=== PATIENT | female | born 1970 | race Caucasian/White ===

== ENCOUNTER → 2025-05-08 | Outpatient (CLI) | payer SELFPAY ==
--- OUTSIDE RECORDS SUMMARY | 2025-05-08 18:40 | XMS RPT_ITS | CCD ---
Author Organization [facility] Inform ion Partnership [facility] Care Team Providers Care Machine Welt Butter Name Role Phone VITO LINN MD Primary Care Physician Samples Bench Assembler Electrical, Amy Unavailable Unavailable Justin Heath Unavailable Unavailable Meghna Díaz Unavailable Unavailable Hanna Oliveira Attending Unavailable Hanna Oliveira Attending Unavailable Hanna Oliveira Attending Unavailable VITO LINN MD Primary Care Physician JOSE ROYAL MD Attending Unavailable MD VITO LINN MD Primary Care Unavailab JOSE Felix MD Attending Unavailable MD VITO LINN MD Primary Care Unavailab MD VITO Galo MD Attending Unavailab MD VITO Galo MD Primary Care Unavailab MD VITO Galo MD Attending Unavailab MD VITO Galo MD Primary Care Unavailab MD VITO Galo MD Attending Unavailab MD VITO Galo MD Primary Care Unavailab MD VITO Galo MD Attending Unavailab MD VITO Galo MD Primary Care Unavailab JOSE Felix MD Attending Unavailable MD VITO LINN MD Primary Care Unavailab MD VITO Galo MD Primary Care Unavailab HEENA Elmore DO Attending Unavail able GELACIO ALMARAZ MD Attending Unavailable MD VITO LINN MD Primary Care Unavailab MD LELE Perdue Attending Unavailable MD VITO LINN MD Primary Care Unavailab HEENA Elmore DO Attending Unavail able MD VITO LINN MD Primary Care Unavailab SHABBIR Blank Attending Unavailab MD VITO Galo MD Primary Care Unavailab MD LELE Perdue Attending Unavailable MD VITO LINN MD Primary Care Unavailab MD LELE Perdue Admitting Unavailable MD VITO LINN MD Attending Unavailab MD VITO Galo MD Primary Care Unavailab MD VITO Galo MD Attending Unavailab MD VITO Galo MD Primary Care Unavailab eloise LINN MD, MD VITO Primary [facility] Unavailab HEENA Elmore DO Attending Unavail able MD VITO LINN MD Primary Care Unavailab MD LELE Perdue Attending Unavailable MD VITO LINN MD Primary [facility] Unavailab MD VITO Galo MD Attending Unavailab HEENA Elmore DO Attending Unavail able MD VITO LINN MD Primary [facility] Unavailab eloise LINN MD, MD VITO Primary [facility] Unavailab eloise RIOS MD, DR NAIK Attending Unav ailable Allergies Allergy Classification Reported Allergen(s) Allergy Type Date of Onset Reaction(s) Facility (9 sources) Amoxicillin; Translations: [amoxicillin] Drug Allergy [facility] Work Phone: (9 sources) Sulfamethoxazole / Trimethoprim; Translations: [sulfamethoxazole-tri methoprim] Drug Allergy [facility] Work Phone: Medications Current Medications Medication Drug Class(es) Dates Sig (Normalized) Sig (Original) Acetaminophen / HYDROcodone (1 source) Opioid Agonist Start: 06-30-2012 take 1 tablet by mouth every four hours as needed for pain Vicodin 500-5 mg oral tablet Dose = 1 tab(s), Oral, q4h, PRN Pain, # 30 tab(s), 0 Refill(s) Start Date: 06/30/12 Status: Ordered docusate sodium 100 mg oral capsule (1 source) Start: 06-30-2012 Colace 100 mg oral capsule Dose : 100 mg = 1 cap(s), Oral, BID, PRN Constipation, 0 Refill(s) Start Date: 06/30/12 Status: Ordered estradiol 1 mg oral tablet (8 sources) Estrogen Start: 04-13-2022 take 0.5 tablet by mouth every other day estradiol 1 mg oral tablet See Instructions, 1/2 tab(s) mg Oral every other Day, 0 Refill(s) Start Date: 04/13/22 Status: Ordered famotidine 20 mg oral tablet (8 sources) Histamine-2 Receptor Antagonist Start: 04-13-2022 famotidine 20 mg oral tablet 0 Refill(s) Start Date: 04/13/22 Status: Ordered ibuprofen 600 mg oral tablet (1 source) Nonsteroidal Anti-inflammatory Drug Start: 06-30-2012 Motrin 600 mg oral tablet Dose : 600 mg = 1 tab(s), Oral, q6h, PRN Pain, scale 1-4 ( Mild ), # 60 tab(s), 0 Refill(s) Start Date: 06/30/12 Status: Ordered Vitamin D3 25 mcg (1000 intl units) oral tablet (8 sources) Start: 04-13-2022 Vitamin D3 25 mcg (1000 intl units) oral tablet Dose : 25 mcg = 1 tab(s), Oral, qDay, # 30 tab(s), 0 Refill(s) Start Date: 04/13/22 Status: Ordered Problems Active Problems Problem Classification Problem Date Documented Date Episodic/Chronic Other nervous system disorders (1 source) Other acute postprocedural pain; Translations: [Other acute postprocedural pain] Onset: 11-22-2024 Episodic Other screening for suspected conditions (not mental disorders or infectious disease) (2 sources) Abnormal findings on diagnostic imaging of other specified body structures; Translations: [Abnormal findings on diagnostic imaging of other specified body structures] Onset: 03-12-2022 Chronic Spondylosis; intervertebral disc disorders; other back problems (3 sources) Radiculopathy, lumbar region; Translations: [Lumbar radiculopathy] Onset: 02-26-2022 Episodic Past or Other Problems Problem Classification Problem Date Documented Da te Episodic/Chronic Other aftercare (2 sources) Other mcfp (current) drug therapy; Translations: [Other intermodal owner operator truck driver (current) drug therapy] Onset: 02-27-2023 Episodic Other connective tissue disease (1 source) Iliotibial band syndrome, left leg; Translations: [Iliotibial band syndrome, left leg] Onset: 05-29-2024 Episodic Results Test Name Value Interpretation Reference Range Facility .Auto Diffon 03-04-2025 Basophil, Absolute 0.1 10 3/mcL Normal 0.0-0.3 [facility] Comment on above: Performed By: #### C BC, IGG, CMP, ADIFF, GFR, ANEU ####[address] [address] Basophils/100 WBC (Bld) 1.0 % Normal 0.0-2.5 [facility] Comment on above: Performed By: #### C BC, IGG, CMP, ADIFF, GFR, ANEU ####[address] [address] Eosinophil, Absolute 0.1 10 3/mcL Normal 0.0-0.7 [facility] Comment on above: Performed By: #### C BC, IGG, CMP, ADIFF, GFR, ANEU ####[address] [address] Eosinophils/100 WBC (Bld) 0.9 % Normal 0.0-6.0 [facility] Comment on above: Performed By: #### C BC, IGG, CMP, ADIFF, GFR, ANEU ####[address] [address] Lymphocyte, Absolute 2.7 10 3/mcL Normal 0.9-4.3 [facility] Comment on above: Performed By: #### C BC, IGG, CMP, ADIFF, GFR, ANEU ####[address] [address] Lymphocytes/100 WBC (Bld) 32.7 % Normal 20.0-40.0 [facility] Comment on above: Performed By: #### C BC, IGG, CMP, ADIFF, GFR, ANEU ####[address] [address] Monocyte, Absolute 0.5 10 3/mcL Normal 0.1-1.4 [facility] Comment on above: Performed By: #### C BC, IGG, CMP, ADIFF, GFR, ANEU ####[address] [address] Monocytes/100 WBC (Bld) 6.0 % Normal 2.0-13.0 [facility] Comment on above: Performed By: #### C BC, IGG, CMP, ADIFF, GFR, ANEU ####[address] [address] Neutrophils/100 WBC (Bld) 59.4 % Normal 50.0-75.0 [facility] Comment on above: Performed By: #### C BC, IGG, CMP, ADIFF, GFR, ANEU ####[address] [address] .GFRon 03-04-2025 Estimated Glomerular Filtration Rate 72 ml/min/1.73sqm Normal [facility] Comment on above: Result Comment: Stages of Chronic Kidney Disease (CKD) Stage Description eGFR(ml/min/1.73 sq.m.) CKD 1 Normal kidney function or >=90 normal kindney function with possible kidney damage (ex. Proteinuria) CKD 2 Kidney damage with mild loss 60-89 of kidney function CKD 3a Mild to moderate loss of kidney 45-59 function CKD 3b Moderate to severe loss of 30-44 of kindey function CKD 4 Severe loss of kidney function 15-29 CKD 5 Kidney failure <15 Note: (go live 2024) the eGFR calculation was updated to the 2020 CKD-EPI creatinine equation without a race factor to calculate the eGFR results. Performed By: #### C BC, IGG, CMP, ADIFF, GFR, ANEU ####[address] [address] .NEUABSon 03-04-2025 Neutrophil, Absolute 4.9 10 3/mcL Normal 2.3-8.1 [facility] Comment on above: Performed By: #### C BC, IGG, CMP, ADIFF, GFR, ANEU ####[place] [address] CBCon 03-04-2025 Erythrocyte distribution width (RBC) [Ratio] 12.0 % Normal 11.5-15.5 [facility] Comment on above: Performed By: #### C BC, IGG, CMP, ADIFF, GFR, ANEU #### [place] [address] Hematocrit (Bld) [Volume fraction] 38.6 % Normal 34.0-46.0 [facility] Comment on above: Performed By: #### C BC, IGG, CMP, ADIFF, GFR, ANEU #### [place] [id number] Hgb 13.7 G/dL Normal 12.0-16.0 [facility] Comment on above: Performed By: #### C BC, IGG, CMP, ADIFF, GFR, ANEU #### [place] [address] MCH (RBC) [Entitic mass] 33.2 pg High 27.0-33.0 [facility] Comment on above: Performed By: #### C BC, IGG, CMP, ADIFF, GFR, ANEU #### [place] [address] MCHC 35.5 G/dL Normal 32.0-36.0 [facility] Comment on above: Performed By: #### C BC, IGG, CMP, ADIFF, GFR, ANEU #### [place] [address] MCV (RBC) [Entitic vol] 93.5 fL Normal 80.0-99.0 [facility] Comment on above: Performed By: #### C BC, IGG, CMP, ADIFF, GFR, ANEU #### [place] [address] Platelet 368 10 3/mcL Normal 150-450 [facility] Comment on above: Performed By: #### C BC, IGG, CMP, ADIFF, GFR, ANEU #### [place] [address] Platelet mean volume (Bld) [Entitic vol] 8.3 fL Normal 6.6-10.5 [facility] Comment on above: Performed By: #### C BC, IGG, CMP, ADIFF, GFR, ANEU #### [place] [address] RBC 4.13 10 6/mcL Normal 4.10-5.30 [facility] Comment on above: Performed By: #### C BC, IGG, CMP, ADIFF, GFR, ANEU #### [place] [id number] WBC 8.3 10 3/mcL Normal 4.5-10.8 [facility] Comment on above: Performed By: #### C BC, IGG, CMP, ADIFF, GFR, ANEU #### [address] [address] CMPon 03-04-2025 Albumin Level 4.1 G/dL Normal 3.2-4.8 [facility] Comment on above: Performed By: #### C BC, IGG, CMP, ADIFF, GFR, ANEU ####[place] [address] Albumin/Globulin [Mass ratio] 1.4 {ratio} Normal 0.9-1.6 [facility] Comment on above: Performed By: #### C BC, IGG, CMP, ADIFF, GFR, ANEU ####[place] [address] ALP [Catalytic activity/Vol] 91 U/L Normal 38-126 [facility] Comment on above: Performed By: #### C BC, IGG, CMP, ADIFF, GFR, ANEU ####[place] [address] ALT [Catalytic activity/Vol] 23 U/L Normal 10-49 [facility] Comment on above: Performed By: #### C BC, IGG, CMP, ADIFF, GFR, ANEU ####[place] [address] AST [Catalytic activity/Vol] 30 U/L Normal 8-34 [facility] Comment on above: Performed By: #### C BC, IGG, CMP, ADIFF, GFR, ANEU ####[place] [address] Bili Total 0.50 mg/dL Normal 0.20-1.20 [facility] Comment on above: Result Comment: Use of this assay is not recommended for patients undergoing treatment with eltrombopag due to the potential for falsely elevated results. Performed By: #### C BC, IGG, CMP, ADIFF, GFR, ANEU ####[place] [address] BUN/Creatinine Ratio 16.8 ratio Normal 10.0-22.0 [facility] Comment on above: Performed By: #### C BC, IGG, CMP, ADIFF, GFR, ANEU ####[address] [address] Calcium [Mass/Vol] 9.8 mg/dL Normal 8.7-10.4 [facility] Comment on above: Performed By: #### C BC, IGG, CMP, ADIFF, GFR, ANEU ####[address] [address] Chloride [Moles/Vol] 106 mmol/L Normal 98-110 [facility] Comment on above: Performed By: #### C BC, IGG, CMP, ADIFF, GFR, ANEU ####[address] [address] CO2 [Moles/Vol] 30 mmol/L Normal 22-32 [facility] Comment on above: Performed By: #### C BC, IGG, CMP, ADIFF, GFR, ANEU ####[address] [address] Creatinine [Mass/Vol] 0.95 mg/dL Normal 0.50-1.20 [facility] Comment on above: Result Comment: Test ing performed on Stealz analyzer using enzymatic creatinine methodology. Performed By: #### C BC, IGG, CMP, ADIFF, GFR, ANEU ####[place] [id number] Electrolyte Balance 1.0 mEq/L Low 4.0-15.0 [facility] Comment on above: Performed By: #### C BC, IGG, CMP, ADIFF, GFR, ANEU ####[address] [address] Globulin 3.0 G/dL Normal 2.5-4.2 [facility] Comment on above: Performed By: #### C BC, IGG, CMP, ADIFF, GFR, ANEU ####[address] [address] Glucose [Mass/Vol] 116 mg/dL High 70-110 [facility] Comment on above: Performed By: #### C BC, IGG, CMP, ADIFF, GFR, ANEU ####[place] [id number] Potassium [Moles/Vol] 3.5 mmol/L Normal 3.5-5.0 [facility] Comment on above: Performed By: #### C BC, IGG, CMP, ADIFF, GFR, ANEU ####[place] [id number] [place] [address] Sodium [Moles/Vol] 137 mmol/L Normal 136-145 [facility] Comment on above: Performed By: #### C BC, IGG, CMP, ADIFF, GFR, ANEU ####[address] [address] Total Protein 7.1 G/dL Normal 5.7-8.2 [facility] Comment on above: Performed By: #### C BC, IGG, CMP, ADIFF, GFR, ANEU ####[place] [id number] Urea nitrogen [Mass/Vol] 16.0 mg/dL Normal 8.0-22.0 [facility] Comment on above: Performed By: #### C BC, IGG, CMP, ADIFF, GFR, ANEU ####[place] [id number] IGGon 03-04-2025 IgG [Mass/Vol] 1062 mg/dL Normal 650-1600 [facility] Comment on above: Result Comment: No te - New Reference Range in effect 20 Performed By: #### C BC, IGG, CMP, ADIFF, GFR, ANEU ####[address] [address] [place] MAMMOGRAM SCREENING BILAT ERAL W/TOMOon 02-03-2025 [place] MAMMOGRAM SCREENING BILATERAL W/[place] ORIGINAL FROM: [address] [address] PROCEDURE FOR: RALPH BURGER [address] [place] [id number] Home: PID#: [id number] Exam#: [id number] : 1970 Age: 54 TO: VITO LINN MD [address] [place], [place] [address] EXAMINATION: SCREENING DIGITAL BILATERAL MAMMOGRAM WITH TOMOSYNTHESIS, 01/31/2025 1:59 pm TECHNIQUE: Screening mammography of the bilateral breasts was performed with tomosynthesis. 2D standard and 3D tomosynthesis combination imaging performed through both breasts in the MLO and CC projection. Computer aided detection was utilized in the interpretation of this exam. COMPARISON: 11/27/2023, 12/13/2022, 10/31/2022, 07/30/2021 HISTORY: Breast cancer screening. FINDINGS: BREAST DENSITY: The breasts are heterogeneously dense, which may obscure small masses. There are no significant masses or calcifications. IMPRESSION: No mammographic evidence of malignancy. Continued screening with annual mammograms is recommended. [facility] risk calculations, generated with the history provided, report this patient's 10 year risk and lifetime risk for developing breast cancer at 2.2% and 8.4%, respectively. Based on this assessment tool, if the patient's calculated lifetime risk is below 20%, then the patient is considered at average risk for developing breast cancer. If the patient's calculated lifetime risk is at or above 20%, then the patient is considered high risk for developing breast cancer and may be a candidate for supplemental breast MRI screening in addition to annual mammographic screening per the [employer]. BIRADS: BI-RADS: 1: Negative RECALL: 1 year screening RECALL TYPE: mammo LETTER SENT: Normal BI-RADS 1 and 2 Interpreted by: Brennan Balderas MD Preliminary Report By: Brennan Balderas MD Electronically signed By Brennan Balderas MD Dictated Date: 02/03/2025 6:15:49 PM Prelim Date: 02/03/2025 6:16:43 PM Sign Date: 02/03/2025 6:16:43 PM Ordering Provider: VITO LINN Engine Specialist: NIKKI VALDEZ(Nakul)(M) letter sent: Normal BI-RADS 1 and 2 Mammogram BI-RADS: 1 Negative Normal [facility] MRI SPINE CERVICAL W/ + W/O CONTRASTon 01-20-2025 MRI SPINE CERVICAL W/ + W/O CONTRAST ORIGINAL EXAMINATION: MRI OF THE CERVICAL SPINE WITHOUT AND WITH CONTRAST 01/17/2025 4:58 pm: TECHNIQUE: Multiplanar multisequence MRI of the cervical spine was performed without and with the administration of intravenous contrast. COMPARISON: None. HISTORY: ORDERING SYSTEM PROVIDED HISTORY: Reason for Exam: Multiple sclerosis FINDINGS: BONES/ALIGNMENT: There is normal alignment of the spine. The vertebral body heights are maintained. The bone marrow signal appears unremarkable. SPINAL CORD: No abnormal cord signal is seen. SOFT TISSUES: No abnormal enhancement of the cervical spine. No paraspinal mass identified. C2-C3: There is no significant disc protrusion, spinal canal stenosis or neural foraminal narrowing. C3-C4: There is no significant disc protrusion, spinal canal stenosis or neural foraminal narrowing. C4-C5: There is no significant disc protrusion, spinal canal stenosis or neural foraminal narrowing. C5-C6: There is no significant disc protrusion, spinal canal stenosis or neural foraminal narrowing. C6-C7: There is no significant disc protrusion, spinal canal stenosis or neural foraminal narrowing. C7-T1: There is no significant disc protrusion, spinal canal stenosis or neural foraminal narrowing. IMPRESSION: No cord lesion is identified. No significant interval change. Interpreted by: Gelacio Graham Preliminary Report By: Gelacio Graham Electronically signed By Gelacio Graham Dictated Date: 01/20/2025 5:45:40 AM Prelim Date: 01/20/2025 5:46:26 AM Sign Date: 01/20/2025 5:46:26 AM Ordering Provider: LELE MALLORY [facility] MRI SPINE THORACIC W/ + W/O CONTRASTon 01-20-2025 MRI SPINE THORACIC W/ + W/O CONTRAST ORIGINAL EXAMINATION: MRI OF THE THORACIC SPINE WITHOUT AND WITH CONTRAST 01/17/2025 4:49 pm TECHNIQUE: Multiplanar multisequence MRI of the thoracic spine was performed without and with the administration of intravenous contrast. COMPARISON: MRI thoracic spine 06/24/2022. MRI thoracic spine 03/12/2022. HISTORY: ORDERING SYSTEM PROVIDED HISTORY: Reason for Exam: Multiple sclerosis FINDINGS: BONES/ALIGNMENT: There is normal alignment of the spine. The vertebral body heights are maintained. The bone marrow signal appears unremarkable. SPINAL CORD: There is a subtle focus of increased T2 signal within the thoracic spinal cord at the level of T12-T1 less apparent over the course of these examinations. No new lesion is identified. SOFT TISSUES: No abnormal enhancement of the thoracic spine. No paraspinal mass identified. DEGENERATIVE CHANGES: No significant spinal canal stenosis or neural foraminal narrowing of the thoracic spine. IMPRESSION: Old demyelinating plaque T12-L1. No acute findings. Interpreted by: Gelacio Graham Preliminary Report By: Gelacio Graham Electronically signed By Gelacio Graham Dictated Date: 01/20/2025 5:42:13 AM Prelim Date: 01/20/2025 5:45:26 AM Sign Date: 01/20/2025 5:45:26 AM Ordering Provider: LELE Ames [facility] .Auto Diffon 01-11-2025 Basophil, Absolute 0.1 10 3/mcL Normal 0.0-0.3 [facility] Comment on above: Performed By: #### L IPID, ADIFF, VIDH, ANEU, CBC, GFR, CMP, TSH ####[address] [address] Basophils/100 WBC (Bld) 1.1 % Normal 0.0-2.5 [facility] Comment on above: Performed By: #### L IPID, ADIFF, VIDH, ANEU, CBC, GFR, CMP, TSH ####[address] [address] Eosinophil, Absolute 0.1 10 3/mcL Normal 0.0-0.7 [facility] Comment on above: Performed By: #### L IPID, ADIFF, VIDH, ANEU, CBC, GFR, CMP, TSH ####[address] [address] Eosinophils/100 WBC (Bld) 1.4 % Normal 0.0-6.0 [facility] Comment on above: Performed By: #### L IPID, ADIFF, VIDH, ANEU, CBC, GFR, CMP, TSH ####[address] [address] Lymphocyte, Absolute 2.2 10 3/mcL Normal 0.9-4.3 [facility] Comment on above: Performed By: #### L IPID, ADIFF, VIDH, ANEU, CBC, GFR, CMP, TSH ####[address] [address] Lymphocytes/100 WBC (Bld) 46.2 % High 20.0-40.0 [facility] Comment on above: Performed By: #### L IPID, ADIFF, VIDH, ANEU, CBC, GFR, CMP, TSH ####[address] [address] Monocyte, Absolute 0.4 10 3/mcL Normal 0.1-1.4 [facility] Comment on above: Performed By: #### L IPID, ADIFF, VIDH, ANEU, CBC, GFR, CMP, TSH ####[address] [address] Monocytes/100 WBC (Bld) 9.2 % Normal 2.0-13.0 [facility] Comment on above: Performed By: #### L IPID, ADIFF, VIDH, ANEU, CBC, GFR, CMP, TSH ####[address] [address] Neutrophils/100 WBC (Bld) 42.1 % Low 50.0-75.0 [facility] Comment on above: Performed By: #### L IPID, ADIFF, VIDH, ANEU, CBC, GFR, CMP, TSH ####[address] [address] .GFRon 01-11-2025 Estimated Glomerular Filtration Rate 74 ml/min/1.73sqm Normal [facility] Comment on above: Result Comment: Stages of Chronic Kidney Disease (CKD) Stage Description eGFR(ml/min/1.73 sq.m.) CKD 1 Normal kidney function or >=90 normal kindney function with possible kidney damage (ex. Proteinuria) CKD 2 Kidney damage with mild loss 60-89 of kidney function CKD 3a Mild to moderate loss of kidney 45-59 function CKD 3b Moderate to severe loss of 30-44 of kindey function CKD 4 Severe loss of kidney function 15-29 CKD 5 Kidney failure <15 Note: (go live 2024) the eGFR calculation was updated to the 2020 CKD-EPI creatinine equation without a race factor to calculate the eGFR results. Performed By: #### L IPID, ADIFF, VIDH, ANEU, CBC, GFR, CMP, TSH ####[place] [address] .NEUABSon 01-11-2025 Neutrophil, Absolute 2.0 10 3/mcL Low 2.3-8.1 [facility] Comment on above: Performed By: #### L IPID, ADIFF, VIDH, ANEU, CBC, GFR, CMP, TSH ####[place] [address] CBCon 01-11-2025 Erythrocyte distribution width (RBC) [Ratio] 12.3 % Normal 11.5-15.5 [facility] Comment on above: Performed By: #### L IPID, ADIFF, VIDH, ANEU, CBC, GFR, CMP, TSH ####[place] [address] Hematocrit (Bld) [Volume fraction] 41.8 % Normal 34.0-46.0 [facility] Comment on above: Performed By: #### L IPID, ADIFF, VIDH, ANEU, CBC, GFR, CMP, TSH ####[place] [address] Hgb 14.7 G/dL Normal 12.0-16.0 [facility] Comment on above: Performed By: #### L IPID, ADIFF, VIDH, ANEU, CBC, GFR, CMP, TSH ####[place] [address] MCH (RBC) [Entitic mass] 32.9 pg Normal 27.0-33.0 [facility] Comment on above: Performed By: #### L IPID, ADIFF, VIDH, ANEU, CBC, GFR, CMP, TSH ####[place] [address] MCHC 35.3 G/dL Normal 32.0-36.0 [facility] Comment on above: Performed By: #### L IPID, ADIFF, VIDH, ANEU, CBC, GFR, CMP, TSH ####[place] [address] MCV (RBC) [Entitic vol] 93.4 fL Normal 80.0-99.0 [facility] Comment on above: Performed By: #### L IPID, ADIFF, VIDH, ANEU, CBC, GFR, CMP, TSH ####[place] [address] Platelet 335 10 3/mcL Normal 150-450 [facility] Comment on above: Performed By: #### L IPID, ADIFF, VIDH, ANEU, CBC, GFR, CMP, TSH ####[place] [address] Platelet mean volume (Bld) [Entitic vol] 8.5 fL Normal 6.6-10.5 [facility] Comment on above: Performed By: #### L IPID, ADIFF, VIDH, ANEU, CBC, GFR, CMP, TSH ####[place] [address] RBC 4.48 10 6/mcL Normal 4.10-5.30 [facility] Comment on above: Performed By: #### L IPID, ADIFF, VIDH, ANEU, CBC, GFR, CMP, TSH ####[place] [address] WBC 4.8 10 3/mcL Normal 4.5-10.8 [facility] Comment on above: Performed By: #### L IPID, ADIFF, VIDH, ANEU, CBC, GFR, CMP, TSH ####[place] [address] CMPon 01-11-2025 Albumin Level 4.2 G/dL Normal 3.2-4.8 [facility] Comment on above: Performed By: #### L IPID, ADIFF, VIDH, ANEU, CBC, GFR, CMP, TSH ####[place] [address] Albumin/Globulin [Mass ratio] 1.5 {ratio} Normal 0.9-1.6 [facility] [facility] Comment on above: Performed By: #### L IPID, ADIFF, VIDH, ANEU, CBC, GFR, CMP, TSH ####[place] [address] ALP [Catalytic activity/Vol] 79 U/L Normal 38-126 [facility] Comment on above: Performed By: #### L IPID, ADIFF, VIDH, ANEU, CBC, GFR, CMP, TSH ####[address] [address] ALT [Catalytic activity/Vol] 24 U/L Normal 10-49 [facility] Comment on above: Performed By: #### L IPID, ADIFF, VIDH, ANEU, CBC, GFR, CMP, TSH ####[address] [address] AST [Catalytic activity/Vol] 33 U/L Normal 8-34 [facility] Comment on above: Performed By: #### L IPID, ADIFF, VIDH, ANEU, CBC, GFR, CMP, TSH ####[place] [id number] Bili Total 0.70 mg/dL Normal 0.20-1.20 [facility] Comment on above: Result Comment: Use of this assay is not recommended for patients undergoing treatment with eltrombopag due to the potential for falsely elevated results. Performed By: #### L IPID, ADIFF, VIDH, ANEU, CBC, GFR, CMP, TSH ####[place] [address] BUN/Creatinine Ratio 8.6 ratio Low 10.0-22.0 [facility] Comment on above: Performed By: #### L IPID, ADIFF, VIDH, ANEU, CBC, GFR, CMP, TSH ####[place] [id number] Calcium [Mass/Vol] 9.5 mg/dL Normal 8.7-10.4 [facility] Comment on above: Performed By: #### L IPID, ADIFF, VIDH, ANEU, CBC, GFR, CMP, TSH ####[address] [address] Chloride [Moles/Vol] 106 mmol/L Normal 98-110 [facility] Comment on above: Performed By: #### L IPID, ADIFF, VIDH, ANEU, CBC, GFR, CMP, TSH ####[address] [address] CO2 [Moles/Vol] 29 mmol/L Normal 22-32 [facility] Comment on above: Performed By: #### L IPID, ADIFF, VIDH, ANEU, CBC, GFR, CMP, TSH ####[address] [address] Creatinine [Mass/Vol] 0.93 mg/dL Normal 0.50-1.20 [facility] Comment on above: Result Comment: Test ing performed on Stealz analyzer using enzymatic creatinine methodology. Performed By: #### L IPID, ADIFF, VIDH, ANEU, CBC, GFR, CMP, TSH ####[place] [address] Electrolyte Balance 8.0 mEq/L Normal 4.0-15.0 [facility] Comment on above: Performed By: #### L IPID, ADIFF, VIDH, ANEU, CBC, GFR, CMP, TSH ####[place] [address] Globulin 2.8 G/dL Normal 2.5-4.2 [facility] Comment on above: Performed By: #### L IPID, ADIFF, VIDH, ANEU, CBC, GFR, CMP, TSH ####[place] [address] Glucose [Mass/Vol] 82 mg/dL Normal 70-110 [facility] Comment on above: Performed By: #### L IPID, ADIFF, VIDH, ANEU, CBC, GFR, CMP, TSH ####[place] [address] Potassium [Moles/Vol] 3.9 mmol/L Normal 3.5-5.0 [facility] Comment on above: Performed By: #### L IPID, ADIFF, VIDH, ANEU, CBC, GFR, CMP, TSH ####[place] [address] Sodium [Moles/Vol] 143 mmol/L Normal 136-145 [facility] Comment on above: Performed By: #### L IPID, ADIFF, VIDH, ANEU, CBC, GFR, CMP, TSH ####[address] [address] Total Protein 7.0 G/dL Normal 5.7-8.2 [facility] Comment on above: Performed By: #### L IPID, ADIFF, VIDH, ANEU, CBC, GFR, CMP, TSH ####[address] [address] Urea nitrogen [Mass/Vol] 8.0 mg/dL Normal 8.0-22.0 [facility] Comment on above: Performed By: #### L IPID, ADIFF, VIDH, ANEU, CBC, GFR, CMP, TSH ####[address] [address] LIPIDon 01-11-2025 Cholesterol [Mass/Vol] 167 mg/dL Normal 50-199 [facility] Comment on above: Result Comment: Chol esterol Reference Interval: Less than 200 Desirable 200-239 Borderline high risk 240 and above High risk Performed By: #### L IPID, ADIFF, VIDH, ANEU, CBC, GFR, CMP, TSH ####[address] [address] Cholesterol in HDL [Mass/Vol] 82 mg/dL High 40-59 [facility] Comment on above: Performed By: #### L IPID, ADIFF, VIDH, ANEU, CBC, GFR, CMP, TSH ####[address] [address] Cholesterol in LDL [Mass/Vol] 73 mg/dL Normal 0-129 [facility] Comment on above: Performed By: #### L IPID, ADIFF, VIDH, ANEU, CBC, GFR, CMP, TSH ####[address] [address] Triglyceride [Mass/Vol] 61 mg/dL Normal 3-149 [facility] Comment on above: Performed By: #### L IPID, ADIFF, VIDH, ANEU, CBC, GFR, CMP, TSH ####[address] [address] TSHon 01-11-2025 TSH 2.311 mIU/mL Normal 0.550-4.780 [facility] Comment on above: Performed By: #### L IPID, ADIFF, VIDH, ANEU, CBC, GFR, CMP, TSH ####[address] [address] VIDHon 01-11-2025 Vit. D 25-Hydroxy 58.0 ng/mL Normal [facility] Comment on above: Result Comment: Inte rpretive Values Based on Total 25(OH)D: Severe Deficiency <20 ng/mL Mild to Moderate Deficiency 20-30 ng/mL Optimum Levels 30-100 ng/mL Toxicity Possible >100 ng/mL Performed By: #### L IPID, ADIFF, VIDH, ANEU, CBC, GFR, CMP, TSH ####[address] [address] .Auto Diffon 08-23-2024 Basophil, Absolute 0.0 10 3/mcL Normal 0.0-0.3 [facility] Comment on above: Performed By: #### G FR, ANEU, CBC, IGG, ADIFF, CMP #### [address] [address] Basophils/100 WBC (Bld) 0.5 % Normal 0.0-2.5 [facility] Comment on above: Performed By: #### G FR, ANEU, CBC, IGG, ADIFF, CMP #### [address] [address] Eosinophil, Absolute 0.1 10 3/mcL Normal 0.0-0.7 [facility] Comment on above: Performed By: #### G FR, ANEU, CBC, IGG, ADIFF, CMP #### [address] [address] Eosinophils/100 WBC (Bld) 0.7 % Normal 0.0-6.0 [facility] Comment on above: Performed By: #### G FR, ANEU, CBC, IGG, ADIFF, CMP #### [address] [address] Lymphocyte, Absolute 2.3 10 3/mcL Normal 0.9-4.3 [facility] Comment on above: Performed By: #### G FR, ANEU, CBC, IGG, ADIFF, CMP #### [address] [address] Lymphocytes/100 WBC (Bld) 26.4 % Normal 20.0-40.0 [facility] Comment on above: Performed By: #### G FR, ANEU, CBC, IGG, ADIFF, CMP #### [address] [address] Monocyte, Absolute 0.5 10 3/mcL Normal 0.1-1.4 [facility] Comment on above: Performed By: #### G FR, ANEU, CBC, IGG, ADIFF, CMP #### [address] [address] Monocytes/100 WBC (Bld) 5.6 % Normal 2.0-13.0 [facility] Comment on above: Performed By: #### G FR, ANEU, CBC, IGG, ADIFF, CMP #### [address] [address] Neutrophils/100 WBC (Bld) 66.8 % Normal 50.0-75.0 [facility] Comment on above: Performed By: #### G FR, ANEU, CBC, IGG, ADIFF, CMP #### [address] [address] .GFRon 08-23-2024 Estimated Glomerular Filtration Rate 84 ml/min/1.73sqm Normal [facility] Comment on above: Result Comment: Stages of Chronic Kidney Disease (CKD) Stage Description eGFR(ml/min/1.73 sq.m.) CKD 1 Normal kidney function or >=90 normal kindney function with possible kidney damage (ex. Proteinuria) CKD 2 Kidney damage with mild loss 60-89 of kidney function CKD 3a Mild to moderate loss of kidney 45-59 function CKD 3b Moderate to severe loss of 30-44 of kindey function CKD 4 Severe loss of kidney function 15-29 CKD 5 Kidney failure <15 Note: (go live 2024) the eGFR calculation was updated to the 2020 CKD-EPI creatinine equation without a race factor to calculate the eGFR results. Performed By: #### G FR, ANEU, CBC, IGG, ADIFF, CMP #### [address] [address] .NEUABSon 08-23-2024 Neutrophil, Absolute 5.7 10 3/mcL Normal 2.3-8.1 [facility] Comment on above: Performed By: #### G FR, ANEU, CBC, IGG, ADIFF, CMP #### [address] [address] CBCon 08-23-2024 Erythrocyte distribution width (RBC) [Ratio] 12.3 % Normal 11.5-15.5 [facility] Comment on above: Performed By: #### G FR, ANEU, CBC, IGG, ADIFF, CMP #### [place] [address] Hematocrit (Bld) [Volume fraction] 41.2 % Normal 34.0-46.0 [facility] Comment on above: Performed By: #### G FR, ANEU, CBC, IGG, ADIFF, CMP #### [place] [address] Hgb 14.4 G/dL Normal 12.0-16.0 [facility] Comment on above: Performed By: #### G FR, ANEU, CBC, IGG, ADIFF, CMP #### [place] [address] MCH (RBC) [Entitic mass] 32.8 pg Normal 27.0-33.0 [facility] Comment on above: Performed By: #### G FR, ANEU, CBC, IGG, ADIFF, CMP #### [place] [address] MCHC 34.8 G/dL Normal 32.0-36.0 [facility] Comment on above: Performed By: #### G FR, ANEU, CBC, IGG, ADIFF, CMP #### [place] [address] MCV (RBC) [Entitic vol] 94.2 fL Normal 80.0-99.0 [facility] Comment on above: Performed By: #### G FR, ANEU, CBC, IGG, ADIFF, CMP #### [place] [address] Platelet 350 10 3/mcL Normal 150-450 [facility] Comment on above: Performed By: #### G FR, ANEU, CBC, IGG, ADIFF, CMP #### [place] [address] Platelet mean volume (Bld) [Entitic vol] 8.5 fL Normal 6.6-10.5 [facility] Comment on above: Performed By: #### G FR, ANEU, CBC, IGG, ADIFF, CMP #### [place] [address] RBC 4.38 10 6/mcL Normal 4.10-5.30 [facility] Comment on above: Performed By: #### G FR, ANEU, CBC, IGG, ADIFF, CMP #### [place] [address] WBC 8.6 10 3/mcL Normal 4.5-10.8 [facility] Comment on above: Performed By: #### G FR, ANEU, CBC, IGG, ADIFF, CMP #### [place] [address] CMPon 08-23-2024 Albumin Level 4.2 G/dL Normal 3.2-4.8 [facility] Comment on above: Performed By: #### G FR, ANEU, CBC, IGG, ADIFF, CMP #### [place] [address] Albumin/Globulin [Mass ratio] 1.4 {ratio} Normal 0.9-1.6 [facility] Comment on above: Performed By: #### G FR, ANEU, CBC, IGG, ADIFF, CMP #### [place] [address] ALP [Catalytic activity/Vol] 80 U/L Normal 38-126 [facility] Comment on above: Performed By: #### G FR, ANEU, CBC, IGG, ADIFF, CMP #### [place] [address] ALT [Catalytic activity/Vol] 22 U/L Normal 10-49 [facility] Comment on above: Performed By: #### G FR, ANEU, CBC, IGG, ADIFF, CMP #### [address] [address] AST [Catalytic activity/Vol] 33 U/L Normal 8-34 [facility] Comment on above: Performed By: #### G FR, ANEU, CBC, IGG, ADIFF, CMP #### [address] [address] Bili Total 0.60 mg/dL Normal 0.20-1.20 [facility] Comment on above: Result Comment: Use of this assay is not recommended for patients undergoing treatment with eltrombopag due to the potential for falsely elevated results. Performed By: #### G FR, ANEU, CBC, IGG, ADIFF, CMP #### [place] [id number] BUN/Creatinine Ratio 19.0 ratio Normal 10.0-22.0 [facility] Comment on above: Performed By: #### G FR, ANEU, CBC, IGG, ADIFF, CMP #### [address] [address] Calcium [Mass/Vol] 10.1 mg/dL Normal 8.7-10.4 [facility] Comment on above: Performed By: #### G FR, ANEU, CBC, IGG, ADIFF, CMP #### [address] [address] Chloride [Moles/Vol] 104 mmol/L Normal 98-110 [facility] Comment on above: Performed By: #### G FR, ANEU, CBC, IGG, ADIFF, CMP #### [address] [address] CO2 [Moles/Vol] 31 mmol/L Normal 22-32 [facility] Comment on above: Performed By: #### G FR, ANEU, CBC, IGG, ADIFF, CMP #### [address] [address] Creatinine [Mass/Vol] 0.84 mg/dL Normal 0.50-1.20 [facility] Comment on above: Result Comment: Test ing performed on Stealz analyzer using enzymatic creatinine methodology. Performed By: #### G FR, ANEU, CBC, IGG, ADIFF, CMP #### [address] [address] Electrolyte Balance 5.0 mEq/L Normal 4.0-15.0 [facility] Comment on above: Performed By: #### G FR, ANEU, CBC, IGG, ADIFF, CMP #### [address] [address] Globulin 3.1 G/dL Normal 1.5-3.8 [facility] Comment on above: Performed By: #### G FR, ANEU, CBC, IGG, ADIFF, CMP #### [address] [address] Glucose [Mass/Vol] 83 mg/dL Normal 70-110 [facility] Comment on above: Performed By: #### G FR, ANEU, CBC, IGG, ADIFF, CMP #### [address] [address] Potassium [Moles/Vol] 3.9 mmol/L Normal 3.5-5.0 [facility] Comment on above: Performed By: #### G FR, ANEU, CBC, IGG, ADIFF, CMP #### [address] [address] Sodium [Moles/Vol] 140 mmol/L Normal 136-145 [facility] Comment on above: Performed By: #### G FR, ANEU, CBC, IGG, ADIFF, CMP #### [address] [address] Total Protein 7.3 G/dL Normal 5.7-8.2 [facility] Comment on above: Performed By: #### G FR, ANEU, CBC, IGG, ADIFF, CMP #### [address] [address] Urea nitrogen [Mass/Vol] 16.0 mg/dL Normal 8.0-22.0 [facility] Comment on above: Performed By: #### G FR, ANEU, CBC, IGG, ADIFF, CMP #### [address] [address] IGGon 08-23-2024 IgG [Mass/Vol] 1028 mg/dL Normal 650-1600 [facility] Comment on above: Result Comment: No te - New Reference Range in effect 20 Performed By: #### G FR, ANEU, CBC, IGG, ADIFF, CMP #### [address] [address] MRI KNEE W/O CONTRAST LEFTon 07-24-2024 MRI KNEE W/O CONTRAST LEFT ORIGINAL EXAMINATION: MRI OF THE LEFT KNEE WITHOUT CONTRAST, 07/23/2024 6:27 pm TECHNIQUE: Multiplanar multisequence MRI of the left knee was performed without the administration of intravenous contrast. COMPARISON: Left knee radiograph dated 04/09/2024 HISTORY: ORDERING SYSTEM PROVIDED HISTORY: Reason for Exam: Meniscus tear Lateral knee pain FINDINGS: There is no evidence of acute fracture, osteonecrosis or suspicious marrow lesion. Nonspecific bone marrow edema/contusion involving the anterolateral tibia/Gerdy's tubercle. There is associated mild thickening, attenuation and increased signal/discontinuity of the distal fibers within the distal iliotibial tract and lateral patellar retinaculum at its tibial insertion with some adjacent subcutaneous inflammatory changes/edema. The anterior cruciate ligament is intact. The posterior cruciate ligament is intact. The medial collateral ligament is intact. The fibular collateral ligament, popliteus tendon, and biceps femoris tendon are intact. Insertional semimembranosus tendinosis. The medial meniscus is intact. There are no displaced medial meniscal fragments. The lateral meniscus is intact. There are no displaced lateral meniscal fragments. Focal intermediate grade chondrosis involving the weight-bearing portion of the medial femoral condyle with underlying reactive subchondral bone marrow edema/cystic change. Low-grade chondral changes in the lateral compartment. 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 The extensor mechanisms appear intact. There is no drainable joint effusion, synovitis, displaced intra-articular body or erosion. Trivial popliteal Wheat's cyst. There is no muscle atrophy, tear or denervation edema. Neurovascular bundles appear intact. IMPRESSION: Insertional sprain and fraying of the iliotibial tract/lateral patellar retinaculum at its tibial insertion with surrounding inflammatory edema and reactive bone marrow edema/contusion at Gerdy's tubercle. 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 No evidence of meniscus tear. Additional incidental findings as above. Interpreted by: Laury Sandoval Preliminary Report By: Laury Sandoval Electronically signed By Laury Sandoval Dictated Date: 07/24/2024 8:32:20 AM Prelim Date: 07/24/2024 8:43:51 AM Sign Date: 07/24/2024 8:43:51 AM Ordering Provider: HEENA SCOTT [facility] MRA NECK W/ + W/O CONTRASTon 06-02-2024 MRA NECK W/ + W/O CONTRAST ORIGINAL EXAMINATION: MRA OF THE NECK WITH AND WITHOUT CONTRAST 05/31/2024 11:09 pm TECHNIQUE: Multiplanar multisequence MRA of the neck was performed with and without the administration of intravenous contrast. Stenosis of the internal carotid arteries measured using NASCET criteria. Maximum intensity projection images were reviewed. COMPARISON: MRI cervical spine 03/12/2022 HISTORY: ORDERING SYSTEM PROVIDED HISTORY: Reason for Exam: Other cerebral infarction due to occlusion or stenosis of small artery; Lacunar infarct, acute; Multiple sclerosis FINDINGS: AORTIC ARCH/ARCH VESSELS: No dissection or arterial injury. No significant stenosis of the brachiocephalic or subclavian arteries. CAROTID ARTERIES: No dissection, arterial injury, or hemodynamically significant stenosis by NASCET criteria. VERTEBRAL ARTERIES: No dissection, arterial injury, or significant stenosis. There is mild stenosis of the proximal V1 segment of the left vertebral artery. Other: Included intracranial and cervical soft tissue structures and osseous structures demonstrate no gross acute abnormality. IMPRESSION: Cervical carotid and vertebral arteries demonstrate no occlusion or significant stenosis. Interpreted by: Frandy Mari Preliminary Report By: Frandy Mari Electronically signed By Frandy Mari Dictated Date: 06/02/2024 7:39:10 PM Prelim Date: 06/02/2024 7:53:33 PM Sign Date: 06/02/2024 7:53:33 PM Ordering Provider: HEENA RIOS [facility] MAIN MRI BRAIN W/ + W/O CONTRASTo n 06-01-2024 MRI BRAIN W/ + W/O CONTRAST ORIGINAL EXAMINATION: MRI OF THE BRAIN WITHOUT AND WITH CONTRAST 05/31/2024 10:33 pm TECHNIQUE: Multiplanar multisequence MRI of the head/brain was performed without and with the administration of intravenous contrast. COMPARISON: 04/17/2023 HISTORY: ORDERING SYSTEM PROVIDED HISTORY: Reason for Exam: MULTIPLE SCLEROSIS FINDINGS: INTRACRANIAL STRUCTURES/VENTRICLE S: There is no acute infarct. There are scattered foci of T2/FLAIR hyperintensity in the periventricular and subcortical white matter, which are not significantly changed from the prior study. No mass effect or midline shift. No evidence of an acute intracranial hemorrhage. The ventricles and sulci are normal in size and configuration. The sellar/suprasellar regions appear unremarkable. The normal signal voids within the major intracranial vessels appear maintained. No abnormal focus of enhancement is seen within the brain. ORBITS: The visualized portion of the orbits demonstrate no acute abnormality. SINUSES: The visualized paranasal sinuses and mastoid air cells demonstrate no acute abnormality. BONES/SOFT TISSUES: The bone marrow signal intensity appears normal. The soft tissues demonstrate no acute abnormality. IMPRESSION: Stable multifocal white matter disease consistent with demyelination. No new lesions or evidence of acute inflammation. Interpreted by: Ortiz Bowman Preliminary Report By: Ortiz Bowman Electronically signed By Ortiz Bowman Dictated Date: 06/01/2024 10:33:16 PM Prelim Date: 06/01/2024 10:36:07 PM Sign Date: 06/01/2024 10:36:07 PM Ordering Provider: HEENA RIOS [facility] MAIN XR KNEE 4 VIEWS LEFTon 04-11 XR KNEE 4 VIEWS LEFT ORIGINAL EXAMINATION: XR upright left knee 4 views 04/09/2024 4:18 pm COMPARISON: None TECHNIQUE: Upright AP and PA views of both knees, upright lateral and sunrise views of left knee HISTORY: ORDERING SYSTEM PROVIDED HISTORY: Reason for Exam: knee pain, FINDINGS: No acute fracture, dislocation, lytic process or periosteal reaction is seen in the visualized bones and joints. No erosive type of arthritis. No periarticular soft tissue calcification. There is no joint space narrowing or other degenerative change. No joint effusion or patellar maltracking. IMPRESSION: No significant skeletal abnormality is seen. . Interpreted by: Zachery Suarez MD Preliminary Report By: Zachery Suarez MD Electronically signed By Zachery Suarez MD Dictated Date: 2024 7:21:24 AM Prelim Date: 2024 7:22:44 AM Sign Date: 2024 7:22:44 AM Ordering Provider: HEENA SCOTT [facility] MAIN BD BONE DENSITY DEXA AXIAL S [facility] 03-21-2024 BD BONE DENSITY DEXA AXIAL SKELETON ORIGINAL EXAMINATION: BONE [id number] 8:06 am TECHNIQUE: Dual energy bone densitometry lumbar spine and left hip. COMPARISON: None HISTORY: ORDERING SYSTEM PROVIDED HISTORY: POST-MENOPAUSAL Osteoporosis screening. FINDINGS: L1-L4: BMD= 0.814 g/cm2 T score= -2.1 Left femoral neck: BMD= 0.681 g/cm2 T score= -1.5 Left hip: BMD= 0.764 g/cm2 T score= -1.5 FRAX score is unable to be documented as the the FRAX score was not calculated. The BHOF f/k/a NOF recommends that FDA-approved medical therapies be considered in post-menopausal women and men age >/= 50 years with a: * Hip or vertebral fracture, or * T-score of /= 20% for major osteoporotic fractures or * >/= 3% for hip fractures All treatment decisions require clinical judgement and consideration of individual patient factors, including patient preferences, comorbidities, previous drug use, risk factors not captured in the FRAX registered model (e.g., frailty, falls, vitamin D deficiency, increased bone turnover, interval significant decline in bone density) and possible under- or over-estimation of fracture risk by FRAX. IMPRESSION: Osteopenia. I have personally reviewed the images of this examination and agree with the resident's findings and interpretation. Interpreted by: Eduar Dutta MD Preliminary Report By: Markell Rm Electronically signed By Eduar Dutta MD Dictated Date: 03/21/2024 8:26:50 AM Prelim Date: 03/21/2024 10:51:17 AM Sign Date: 03/21/2024 10:51:17 AM Ordering Provider: VITO Ames [facility] MA[facility] LABORATORYOrdered By: SYSTEM SYSTEM on 02-28-2024 Albumin BCP dye [Mass/Vol] 4.0 G/dL Normal 3.2 - 4.8 G/dL ADM SS Albumin/Globulin [Mass ratio] 1.3 {ratio} Normal 0.9 - 1.6 ratio AH ADM SS ALP [Catalytic activity/Vol] 101 U/L Normal 38 - 126 U/L ADM SS ALT No additional P-5'-P [Catalytic activity/Vol] 23 U/L Normal 10 - 49 U/L AH ADM SS AST [Catalytic activity/Vol] 31 U/L Normal 8 - 34 U/L ADM SS Basophils (Bld) [#/Vol] 0.1 103/mcL Normal 0.0 - 0.3 10^3/mcL Workflow SS Basophils/100 WBC (Bld) 1.0 % Normal 0.0 - 2.5 % Workflow SS Bilirubin [Mass/Vol] 0.70 mg/dL Normal 0.20 - 1.20 mg/dL ADM SS Comment on above: Interpretive Data: U se of this assay is not recommended for patients undergoing treatment with eltrombopag due to the potential for falsely elevated results. Calcium [Mass/Vol] 10.2 mg/dL Normal 8.7 - 10. 4 mg/dL ADM SS Chloride [Moles/Vol] 104 mmol/L Normal 98 - 11 0 mEq/L ADM SS CO2 [Moles/Vol] 31 mmol/L Normal 22 - 32 mEq/L ADM SS Creatinine [Mass/Vol] 0.99 mg/dL Normal 0.50 - 1.20 mg/dL ADM SS Comment on above: Interpretive Data: T esting performed on Stealz analyzer using enzymatic creatinine methodology. Electrolyte Balance 5.0 mEq/L Normal 4.0 - 15 .0 mEq/L ADM SS Eosinophils (Bld) [#/Vol] 0.1 103/mcL Normal 0.0 - 0.7 10^3/mcL Workflow SS Eosinophils/100 WBC (Bld) 1.4 % Normal 0.0 - 6.0 % Workflow SS Erythrocyte distribution width (RBC) [Ratio] 12.1 % Normal 11.5 - 15.5 % Workflow SS GFR/1.73 sq M.predicted among blacks MDRD (S/P/Bld) [Vol rate/Area] ml/min/1.73sqm Invalid Interpretation Code Chemistry S Comment on above: Interpretive Data: GFR Population mean for , Non- Americans Ages 20-29 = 116 mL/min/1.73 sq.m. Ages 30-39 = 107 mL/min/1.73 sq.m. Ages 40-49 = 99 mL/min/1.73 sq.m. Ages 50-59 = 93 mL/min/1.73 sq.m. Ages 60-69 = 85 mL/min/1.73 sq.m. Ages 70+ = 75 mL/min/1.73 sq.m. Chronic Kidney Disease: Less than 60 mL/min/1.73 square meters End Stage Renal Disease: Less than 15 mL/min/1.73 square meters GFR/1.73 sq M.predicted among non-blacks MDRD (S/P/Bld) [Vol rate/Area] 59 ml/min/1.73sqm Invalid Interpretation Code Chemistry S Comment on above: Interpretive Data: GFR Population mean for , Non- Americans Ages 20-29 = 116 mL/min/1.73 sq.m. Ages 30-39 = 107 mL/min/1.73 sq.m. Ages 40-49 = 99 mL/min/1.73 sq.m. Ages 50-59 = 93 mL/min/1.73 sq.m. Ages 60-69 = 85 mL/min/1.73 sq.m. Ages 70+ = 75 mL/min/1.73 sq.m. Chronic Kidney Disease: Less than 60 mL/min/1.73 square meters End Stage Renal Disease: Less than 15 mL/min/1.73 square meters Globulin 3.0 G/dL Normal 1.5 - 3.8 G/dL ADM SS Glucose [Mass/Vol] 85 mg/dL Normal 70 - 110 mg/dL ADM SS Hematocrit (Bld) [Volume fraction] 40.2 % Normal 34.0 - 46.0 % Workflow SS Hemoglobin (Bld) [Mass/Vol] 14.0 G/dL Normal 12.0 - 16.0 G/dL Workflow SS IgA [Mass/Vol] 242 mg/dL Normal 40 - 350 mg/dL [facility] Comment on above: Interpretive Data: * *Note - New Reference Range in effect 20 IgG [Mass/Vol] 951 mg/dL Normal 650 - 1600 mg/dL [facility] Comment on above: Interpretive Data: * *Note - New Reference Range in effect 20 IgM [Mass/Vol] 111 mg/dL Normal 50 - 300 mg/dL [facility] Comment on above: Interpretive Data: * *Note - New Reference Range in effect 20 Lymphocytes (Bld) [#/Vol] 1.5 103/mcL Normal 0.9 - 4.3 10^3/mcL AH Workflow SS Lymphocytes/100 WBC (Bld) 18.8 % Low 20.0 - 40.0 % AH Workflow SS MCH (RBC) [Entitic mass] 33.4 pg High 27.0 - 33.0 pg AH Workflow SS MCHC 34.9 G/dL Normal 32.0 - 36.0 G/dL AH Workflow SS MCV (RBC) [Entitic vol] 95.9 fL Normal 80.0 - 99.0 fL AH Workflow SS Monocytes (Bld) [#/Vol] 0.5 103/mcL Normal 0.1 - 1.4 10^3/mcL AH Workflow SS Monocytes/100 WBC (Bld) 6.5 % Normal 2.0 - 13.0 % AH Workflow SS Neutrophils (Bld) [#/Vol] 5.6 103/mcL Normal 2.3 - 8.1 10^3/mcL AH Workflow SS Neutrophils/100 WBC (Bld) 72.3 % Normal 50.0 - 75.0 % AH Workflow SS Platelet mean volume (Bld) [Entitic vol] 8.2 fL Normal 6.6 - 10.5 fL AH Workflow SS Platelets (Bld) [#/Vol] 336 103/mcL Normal 150 - 450 10^3/mcL AH Workflow SS Potassium [Moles/Vol] 4.6 mmol/L Normal 3.5 - 5.0 mEq/L AH ADM SS Protein [Mass/Vol] 7.0 G/dL Normal 5.7 - 8.2 G/dL AH ADM SS Comment on above: Interpretive Data: * *Note - New Reference Range in effect 20 RBC (Bld) [#/Vol] 4.19 106/mcL Normal 4.10 - 5.3 0 10^6/mcL AH Workflow SS Sodium [Moles/Vol] 140 mmol/L Normal 136 - 145 mEq/L AH ADM SS Urea nitrogen [Mass/Vol] 13.0 mg/dL Normal 8.0 - 22.0 mg/dL AH ADM SS Urea nitrogen/Creatinine [Mass ratio] 13.1 ratio Normal 10.0 - 22.0 ratio AH ADM SS WBC (Bld) [#/Vol] 7.7 103/mcL Normal 4.5 - 10.8 10^3/mcL AH Workflow SS .Auto Diffon 01-27-2024 Basophil, Absolute 0.1 10 3/mcL Normal 0.0-0.3 [facility] ([place]) Comment on above: Performed By: #### A DIFF, ANEU, IMMUN, CMP, GFR, CBC #### [address] [address] Basophils/100 WBC (Bld) 1.4 % Normal 0.0-2.5 [facility] ([place]) Comment on above: Performed By: #### A DIFF, ANEU, IMMUN, CMP, GFR, CBC #### [address] [address] Eosinophil, Absolute 0.2 10 3/mcL Normal 0.0-0.7 [facility] ([place]) Comment on above: Performed By: #### A DIFF, ANEU, IMMUN, CMP, GFR, CBC #### [address] [address] Eosinophils/100 WBC (Bld) 3.1 % Normal 0.0-6.0 [facility] ([place]) Comment on above: Performed By: #### A DIFF, ANEU, IMMUN, CMP, GFR, CBC #### [address] [address] Lymphocyte, Absolute 2.2 10 3/mcL Normal 0.9-4.3 [facility] ([place]) Comment on above: Performed By: #### A DIFF, ANEU, IMMUN, CMP, GFR, CBC #### [address] [address] Lymphocytes/100 WBC (Bld) 43.5 % High 20.0-40.0 [facility] ([place]) Comment on above: Performed By: #### A DIFF, ANEU, IMMUN, CMP, GFR, CBC #### [address] [address] Monocyte, Absolute 0.5 10 3/mcL Normal 0.1-1.4 [facility] ([place]) Comment on above: Performed By: #### A DIFF, ANEU, IMMUN, CMP, GFR, CBC #### [address] [address] Monocytes/100 WBC (Bld) 9.2 % Normal 2.0-13.0 [facility] ([place]) Comment on above: Performed By: #### A DIFF, ANEU, IMMUN, CMP, GFR, CBC #### [address] [address] Neutrophils/100 WBC (Bld) 42.8 % Low 50.0-75.0 [facility] ([place]) Comment on above: Performed By: #### A DIFF, ANEU, IMMUN, CMP, GFR, CBC #### [address] [address] .GFRon 01-27-2024 GFR >60 Normal [facility] ([place]) Comment on above: Result Comment: GFR Population mean for , Non- Americans Ages 20-29 = 116 mL/min/1.73 sq.m. Ages 30-39 = 107 mL/min/1.73 sq.m. Ages 40-49 = 99 mL/min/1.73 sq.m. Ages 50-59 = 93 mL/min/1.73 sq.m. Ages 60-69 = 85 mL/min/1.73 sq.m. Ages 70+ = 75 mL/min/1.73 sq.m. Chronic Kidney Disease: Less than 60 mL/min/1.73 square meters End Stage Renal Disease: Less than 15 mL/min/1.73 square meters Performed By: #### A DIFF, ANEU, IMMUN, CMP, GFR, CBC #### [address] [address] GFR Non- 58 ml/min/1.73sqm Normal [facility] ([place]) Comment on above: Result Comment: GFR Population mean for , Non- Americans Ages 20-29 = 116 mL/min/1.73 sq.m. Ages 30-39 = 107 mL/min/1.73 sq.m. Ages 40-49 = 99 mL/min/1.73 sq.m. Ages 50-59 = 93 mL/min/1.73 sq.m. Ages 60-69 = 85 mL/min/1.73 sq.m. Ages 70+ = 75 mL/min/1.73 sq.m. Chronic Kidney Disease: Less than 60 mL/min/1.73 square meters End Stage Renal Disease: Less than 15 mL/min/1.73 square meters Performed By: #### A DIFF, ANEU, IMMUN, CMP, GFR, CBC #### [place] [id number] .NEUABSon 01-27-2024 Neutrophil, Absolute 2.1 10 3/mcL Low 2.3-8.1 [facility] ([place]) Comment on above: Performed By: #### A DIFF, ANEU, IMMUN, CMP, GFR, CBC #### [place] [id number] CBCon 01-27-2024 Erythrocyte distribution width (RBC) [Ratio] 12.8 % Normal 11.5-15.5 [facility] ([place]) Comment on above: Performed By: #### A DIFF, ANEU, IMMUN, CMP, GFR, CBC #### [place] [address] Hematocrit (Bld) [Volume fraction] 43.5 % Normal 34.0-46.0 [facility] ([place]) Comment on above: Performed By: #### A DIFF, ANEU, IMMUN, CMP, GFR, CBC #### [place] [address] Hgb 14.2 G/dL Normal 12.0-16.0 [facility] ([place]) Comment on above: Performed By: #### A DIFF, ANEU, IMMUN, CMP, GFR, CBC #### [place] [address] MCH (RBC) [Entitic mass] 31.8 pg Normal 27.0-33.0 [facility] ([place]) Comment on above: Performed By: #### A DIFF, ANEU, IMMUN, CMP, GFR, CBC #### [place] [address] MCHC 32.5 G/dL Normal 32.0-36.0 [facility] ([place]) Comment on above: Performed By: #### A DIFF, ANEU, IMMUN, CMP, GFR, CBC #### [place] [address] MCV (RBC) [Entitic vol] 97.9 fL Normal 80.0-99.0 [facility] ([place]) Comment on above: Performed By: #### A DIFF, ANEU, IMMUN, CMP, GFR, CBC #### [address] [address] Platelet 349 10 3/mcL Normal 150-450 [facility] ([place]) Comment on above: Performed By: #### A DIFF, ANEU, IMMUN, CMP, GFR, CBC #### [place] [address] Platelet mean volume (Bld) [Entitic vol] 8.0 fL Normal 6.6-10.5 [facility] ([place]) Comment on above: Performed By: #### A DIFF, ANEU, IMMUN, CMP, GFR, CBC #### [address] [address] RBC 4.45 10 6/mcL Normal 4.10-5.30 [facility] ([place]) Comment on above: Performed By: #### A DIFF, ANEU, IMMUN, CMP, GFR, CBC #### [place] [address] WBC 5.0 10 3/mcL Normal 4.5-10.8 [facility] ([place]) Comment on above: Performed By: #### A DIFF, ANEU, IMMUN, CMP, GFR, CBC #### [address] [address] CMPon 01-27-2024 Albumin Level 4.1 G/dL Normal 3.2-4.8 [facility] ([place]) Comment on above: Performed By: #### A DIFF, ANEU, IMMUN, CMP, GFR, CBC #### [place] [address] Albumin/Globulin [Mass ratio] 1.5 {ratio} Normal 0.9-1.6 [facility] ([place]) Comment on above: Performed By: #### A DIFF, ANEU, IMMUN, CMP, GFR, CBC #### [place] [id number] ALP [Catalytic activity/Vol] 100 U/L Normal 38-126 [facility] ([place]) Comment on above: Performed By: #### A DIFF, ANEU, IMMUN, CMP, GFR, CBC #### [address] [address] ALT [Catalytic activity/Vol] 19 U/L Normal 10-49 [facility] ([place]) Comment on above: Performed By: #### A DIFF, ANEU, IMMUN, CMP, GFR, CBC #### [address] [address] AST [Catalytic activity/Vol] 28 U/L Normal 8-34 [facility] ([place]) Comment on above: Performed By: #### A DIFF, ANEU, IMMUN, CMP, GFR, CBC #### [address] [address] Bili Total 0.90 mg/dL Normal 0.20-1.20 [facility] ([place]) Comment on above: Result Comment: Use of this assay is not recommended for patients undergoing treatment with eltrombopag due to the potential for falsely elevated results. Performed By: #### A DIFF, ANEU, IMMUN, CMP, GFR, CBC #### [address] [address] BUN/Creatinine Ratio 9.0 ratio Low 10.0-22.0 [facility] ([place]) Comment on above: Performed By: #### A DIFF, ANEU, IMMUN, CMP, GFR, CBC #### [address] [address] Calcium [Mass/Vol] 9.3 mg/dL Normal 8.7-10.4 [facility] ([place]) Comment on above: Performed By: #### A DIFF, ANEU, IMMUN, CMP, GFR, CBC #### [address] [address] Chloride [Moles/Vol] 110 mmol/L Normal 98-110 [facility] ([place]) Comment on above: Performed By: #### A DIFF, ANEU, IMMUN, CMP, GFR, CBC #### [address] [address] CO2 [Moles/Vol] 29 mmol/L Normal 22-32 [facility] ([place]) Comment on above: Performed By: #### A DIFF, ANEU, IMMUN, CMP, GFR, CBC #### [address] [address] Creatinine [Mass/Vol] 1.00 mg/dL Normal 0.50-1.20 [facility] ([place]) Comment on above: Performed By: #### A DIFF, ANEU, IMMUN, CMP, GFR, CBC #### [address] [address] Electrolyte Balance 0.0 mEq/L Low 4.0-15.0 [facility] ([place]) Comment on above: Performed By: #### A DIFF, ANEU, IMMUN, CMP, GFR, CBC #### [address] [address] Globulin 2.7 G/dL Normal 1.5-3.8 [facility] ([place]) Comment on above: Performed By: #### A DIFF, ANEU, IMMUN, CMP, GFR, CBC #### [address] [address] Glucose [Mass/Vol] 79 mg/dL Normal 70-110 [facility] ([place]) Comment on above: Performed By: #### A DIFF, ANEU, IMMUN, CMP, GFR, CBC #### [address] [address] Potassium [Moles/Vol] 4.1 mmol/L Normal 3.5-5.0 [facility] ([place]) Comment on above: Performed By: #### A DIFF, ANEU, IMMUN, CMP, GFR, CBC #### [address] [address] Sodium [Moles/Vol] 139 mmol/L Normal 136-145 [facility] ([place]) Comment on above: Performed By: #### A DIFF, ANEU, IMMUN, CMP, GFR, CBC #### [address] [address] Total Protein 6.8 G/dL Normal 5.7-8.2 [facility] ([place]) Comment on above: Result Comment: No te - New Reference Range in effect 20 Performed By: #### A DIFF, ANEU, IMMUN, CMP, GFR, CBC #### [place] [id number] Urea nitrogen [Mass/Vol] 9.0 mg/dL Normal 8.0-22.0 [facility] ([place]) Comment on above: Performed By: #### A DIFF, ANEU, IMMUN, CMP, GFR, CBC #### [address] [address] LIPIDon 01-27-2024 Cholesterol [Mass/Vol] 175 mg/dL Normal 50-199 [facility] ([place]) Comment on above: Result Comment: Chol esterol Reference Interval: Less than 200 Desirable 200-239 Borderline high risk 240 and above High risk Performed By: #### A DIFF, ANEU, IMMUN, CMP, GFR, CBC #### [place] [address] Cholesterol in HDL [Mass/Vol] 92 mg/dL High 40-59 [facility] ([place]) Comment on above: Performed By: #### A DIFF, ANEU, IMMUN, CMP, GFR, CBC #### [place] [address] Cholesterol in LDL [Mass/Vol] 68 mg/dL Normal 0-129 [facility] ([place]) Comment on above: Performed By: #### A DIFF, ANEU, IMMUN, CMP, GFR, CBC #### [place] [address] Triglyceride [Mass/Vol] 76 mg/dL Normal 3-149 [facility] ([place]) Comment on above: Performed By: #### A DIFF, ANEU, IMMUN, CMP, GFR, CBC #### [place] [address] TSHon 01-27-2024 TSH 2.155 mIU/mL Normal 0.550-4.780 [facility] ([place]) Comment on above: Result Comment: No te - New Reference Range in effect 20 Performed By: #### A DIFF, ANEU, IMMUN, CMP, GFR, CBC #### [address] [address] VIDHon 01-27-2024 Vit. D 25-Hydroxy 87.7 ng/mL Normal [facility] ([place]) Comment on above: Result Comment: Inte rpretive Values Based on Total 25(OH)D: Severe Deficiency <20 ng/mL Mild to Moderate Deficiency 20-30 ng/mL Optimum Levels 30-100 ng/mL Toxicity Possible >100 ng/mL Performed By: #### A DIFF, ANEU, IMMUN, CMP, GFR, CBC #### [facility] [address] [place], [place] [address] MA MAMMOGRAM SCREENING BILAT ERAL W/TOMOon 11-28-2023 MA MAMMOGRAM SCREENING BILATERAL W/[place] ORIGINAL FROM: [facility] [address] [place] [address] PROCEDURE FOR: RALPH BallesterosBibi BURGER [address] [place] [id number] Home: PID#: [id number] Exam#: [id number] : 1970 Age: 53 TO: VITO LINN MD [address] [place], [place] [address] EXAMINATION: SCREENING DIGITAL BILATERAL MAMMOGRAM WITH TOMOSYNTHESIS, 11/27/2023 4:56 pm TECHNIQUE: Screening mammography of the bilateral breasts was performed with tomosynthesis. 2D standard and 3D tomosynthesis combination imaging performed through both breasts in the MLO and CC projection. Computer aided detection was utilized in the interpretation of this exam. COMPARISON: 10/31/2022, 07/30/2021 HISTORY: Breast cancer screening FINDINGS: BREAST DENSITY: Heterogeneously dense There are no significant masses or calcifications. IMPRESSION: No mammographic evidence of malignancy. Continued screening with annual mammograms is recommended. Dahlia Lindsey risk calculations, generated with the history provided, report this patient's 10 year risk and lifetime risk for developing breast cancer at 2.0% and 8.3%, respectively. Based on this assessment tool, if the patient's calculated lifetime risk is below 20%, then the patient is considered at average risk for developing breast cancer. If the patient's calculated lifetime risk is at or above 20%, then the patient is considered high risk for developing breast cancer and may be a candidate for supplemental breast MRI screening in addition to annual mammographic screening per the [employer]. I have personally reviewed the images of this examination and agree with the resident's findings and interpretation. BIRADS: MAMMOGRAM BI-RADS: 1: Negative RECALL: 1 year screening RECALL TYPE: mammo LETTER SENT: Normal BI-RADS 1 and 2 Interpreted by: Brennan Balderas MD Preliminary Report By: Rohit Stacia Electronically signed By Brennan Balderas MD Dictated Date: 11/28/2023 8:29:17 AM Prelim Date: 11/28/2023 9:09:24 AM Sign Date: 11/28/2023 9:09:24 AM Ordering Provider: VITO LINN Engine Specialist: RALPH BRANHAM RT(R)(M) letter sent: Normal BI-RADS 1 and 2 Mammogram BI-RADS: 1 Negative Normal [facility] ([place]) .Auto Diffon 09-04-2023 Basophil, Absolute 0.2 10 3/mcL Normal 0.0-0.3 [facility] ([place]) Comment on above: Performed By: #### A DIFF, ANEU, IMMUN, CMP, GFR, CBC #### [address] [address] Basophils/100 WBC (Bld) 2.7 % High 0.0-2.5 [facility] ([place]) Comment on above: Performed By: #### A DIFF, ANEU, IMMUN, CMP, GFR, CBC #### [address] [address] Eosinophil, Absolute 0.2 10 3/mcL Normal 0.0-0.7 [facility] ([place] Comment on above: Performed By: #### A DIFF, ANEU, IMMUN, CMP, GFR, CBC #### [address] [address] Eosinophils/100 WBC (Bld) 2.7 % Normal 0.0-6.0 [facility] ([place]) Comment on above: Performed By: #### A DIFF, ANEU, IMMUN, CMP, GFR, CBC #### [address] [address] Lymphocyte, Absolute 2.4 10 3/mcL Normal 0.9-4.3 [facility] ([place] Comment on above: Performed By: #### A DIFF, ANEU, IMMUN, CMP, GFR, CBC #### [address] [address] Lymphocytes/100 WBC (Bld) 33.2 % Normal 20.0-40.0 [facility] ([place]) Comment on above: Performed By: #### A DIFF, ANEU, IMMUN, CMP, GFR, CBC #### [address] [address] Monocyte, Absolute 0.4 10 3/mcL Normal 0.1-1.4 [facility] ([place]) Comment on above: Performed By: #### A DIFF, ANEU, IMMUN, CMP, GFR, CBC #### [address] [address] Monocytes/100 WBC (Bld) 5.9 % Normal 2.0-13.0 [facility] ([place]) Comment on above: Performed By: #### A DIFF, ANEU, IMMUN, CMP, GFR, CBC #### [address] [address] Neutrophils/100 WBC (Bld) 55.5 % Normal 50.0-75.0 [facility] ([place]) Comment on above: Performed By: #### A DIFF, ANEU, IMMUN, CMP, GFR, CBC #### [address] [address] .GFRon 09-04-2023 GFR >60 Normal [facility] ([place]) Comment on above: Result Comment: GFR Population mean for , Non- Americans Ages 20-29 = 116 mL/min/1.73 sq.m. Ages 30-39 = 107 mL/min/1.73 sq.m. Ages 40-49 = 99 mL/min/1.73 sq.m. Ages 50-59 = 93 mL/min/1.73 sq.m. Ages 60-69 = 85 mL/min/1.73 sq.m. Ages 70+ = 75 mL/min/1.73 sq.m. Chronic Kidney Disease: Less than 60 mL/min/1.73 square meters End Stage Renal Disease: Less than 15 mL/min/1.73 square meters Performed By: #### A DIFF, ANEU, IMMUN, CMP, GFR, CBC #### [address] [address] GFR Non- >60 Normal [facility] ([place]) Comment on above: Result Comment: GFR Population mean for , Non- Americans Ages 20-29 = 116 mL/min/1.73 sq.m. Ages 30-39 = 107 mL/min/1.73 sq.m. Ages 40-49 = 99 mL/min/1.73 sq.m. Ages 50-59 = 93 mL/min/1.73 sq.m. Ages 60-69 = 85 mL/min/1.73 sq.m. Ages 70+ = 75 mL/min/1.73 sq.m. Chronic Kidney Disease: Less than 60 mL/min/1.73 square meters End Stage Renal Disease: Less than 15 mL/min/1.73 square meters Performed By: #### A DIFF, ANEU, IMMUN, CMP, GFR, CBC #### [place] [address] .NEUABSon 09-04-2023 Neutrophil, Absolute 4.0 10 3/mcL Normal 2.3-8.1 [facility] ([place] Comment on above: Performed By: #### A DIFF, ANEU, IMMUN, CMP, GFR, CBC #### [place] [address] CBCon 09-04-2023 Erythrocyte distribution width (RBC) [Ratio] 12.6 % Normal 11.5-15.5 [facility] ([place]) Comment on above: Performed By: #### A DIFF, ANEU, IMMUN, CMP, GFR, CBC #### [place] [address] Hematocrit (Bld) [Volume fraction] 38.9 % Normal 34.0-46.0 [facility] ([place]) Comment on above: Performed By: #### A DIFF, ANEU, IMMUN, CMP, GFR, CBC #### [place] [address] Hgb 13.6 G/dL Normal 12.0-16.0 [facility] ([place]) Comment on above: Performed By: #### A DIFF, ANEU, IMMUN, CMP, GFR, CBC #### [place] [address] MCH (RBC) [Entitic mass] 33.3 pg High 27.0-33.0 [facility] ([place]) Comment on above: Performed By: #### A DIFF, ANEU, IMMUN, CMP, GFR, CBC #### [place] [address] MCHC 35.0 G/dL Normal 32.0-36.0 [facility] ([place] Comment on above: Performed By: #### A DIFF, ANEU, IMMUN, CMP, GFR, CBC #### [place] [address] MCV (RBC) [Entitic vol] 95.0 fL Normal 80.0-99.0 [facility] ([place]) Comment on above: Performed By: #### A DIFF, ANEU, IMMUN, CMP, GFR, CBC #### [place] [address] Platelet 348 10 3/mcL Normal 150-450 [facility] ([place]) Comment on above: Performed By: #### A DIFF, ANEU, IMMUN, CMP, GFR, CBC #### [place] [address] Platelet mean volume (Bld) [Entitic vol] 8.2 fL Normal 6.6-10.5 [facility] ([place]) Comment on above: Performed By: #### A DIFF, ANEU, IMMUN, CMP, GFR, CBC #### [place] [address] RBC 4.09 10 6/mcL Low 4.10-5.30 [facility] ([place]) Comment on above: Performed By: #### A DIFF, ANEU, IMMUN, CMP, GFR, CBC #### [place] [address] WBC 7.1 10 3/mcL Normal 4.5-10.8 [facility] ([place]) Comment on above: Performed By: #### A DIFF, ANEU, IMMUN, CMP, GFR, CBC #### [address] [address] CMPon 09-04-2023 Albumin Level 3.7 G/dL Normal 3.2-4.8 [facility] ([place]) Comment on above: Performed By: #### A DIFF, ANEU, IMMUN, CMP, GFR, CBC #### [place] [address] Albumin/Globulin [Mass ratio] 1.3 {ratio} Normal 0.9-1.6 [facility] ([place]) Comment on above: Performed By: #### A DIFF, ANEU, IMMUN, CMP, GFR, CBC #### [place] [id number] ALP [Catalytic activity/Vol] 85 U/L Normal 38-126 [facility] ([place]) Comment on above: Performed By: #### A DIFF, ANEU, IMMUN, CMP, GFR, CBC #### [place] [id number] ALT [Catalytic activity/Vol] 24 U/L Normal 10-49 [facility] ([place]) Comment on above: Performed By: #### A DIFF, ANEU, IMMUN, CMP, GFR, CBC #### [place] [id number] AST [Catalytic activity/Vol] 29 U/L Normal 8-34 [facility] ([place]) Comment on above: Performed By: #### A DIFF, ANEU, IMMUN, CMP, GFR, CBC #### [place] [address] Bili Total 0.40 mg/dL Normal 0.20-1.20 [facility] ([place]) Comment on above: Result Comment: Use of this assay is not recommended for patients undergoing treatment with eltrombopag due to the potential for falsely elevated results. Performed By: #### A DIFF, ANEU, IMMUN, CMP, GFR, CBC #### [place] [address] BUN/Creatinine Ratio 22.9 ratio High 10.0-22.0 [facility] ([place]) Comment on above: Performed By: #### A DIFF, ANEU, IMMUN, CMP, GFR, CBC #### [address] [address] Calcium [Mass/Vol] 9.3 mg/dL Normal 8.7-10.4 [facility] ([place]) Comment on above: Performed By: #### A DIFF, ANEU, IMMUN, CMP, GFR, CBC #### [address] [address] Chloride [Moles/Vol] 107 mmol/L Normal 98-110 [facility] ([place]) Comment on above: Performed By: #### A DIFF, ANEU, IMMUN, CMP, GFR, CBC #### [address] [address] CO2 [Moles/Vol] 31 mmol/L Normal 22-32 [facility] ([place]) Comment on above: Performed By: #### A DIFF, ANEU, IMMUN, CMP, GFR, CBC #### [place] [id number] Creatinine [Mass/Vol] 0.83 mg/dL Normal 0.50-1.20 [facility] ([place]) Comment on above: Performed By: #### A DIFF, ANEU, IMMUN, CMP, GFR, CBC #### [place] [id number] Electrolyte Balance 4.0 mEq/L Normal 4.0-15.0 [facility] ([place]) Comment on above: Performed By: #### A DIFF, ANEU, IMMUN, CMP, GFR, CBC #### [address] [address] Globulin 2.9 G/dL Normal 1.5-3.8 [facility] ([place]) Comment on above: Performed By: #### A DIFF, ANEU, IMMUN, CMP, GFR, CBC #### [place] [id number] Glucose [Mass/Vol] 117 mg/dL High 70-110 [facility] ([place]) Comment on above: Performed By: #### A DIFF, ANEU, IMMUN, CMP, GFR, CBC #### [place] [id number] Potassium [Moles/Vol] 3.9 mmol/L Normal 3.5-5.0 [facility] ([place]) Comment on above: Performed By: #### A DIFF, ANEU, IMMUN, CMP, GFR, CBC #### [address] [address] Sodium [Moles/Vol] 142 mmol/L Normal 136-145 [facility] ([place]) Comment on above: Performed By: #### A DIFF, ANEU, IMMUN, CMP, GFR, CBC #### [address] [address] Total Protein 6.6 G/dL Normal 5.7-8.2 [facility] ([place]) Comment on above: Result Comment: No te - New Reference Range in effect 20 Performed By: #### A DIFF, ANEU, IMMUN, CMP, GFR, CBC #### [address] [address] Urea nitrogen [Mass/Vol] 19.0 mg/dL Normal 8.0-22.0 [facility] ([place]) Comment on above: Performed By: #### A DIFF, ANEU, IMMUN, CMP, GFR, CBC #### [address] [address] IMMUNon 09-04-2023 IgA [Mass/Vol] 227 mg/dL Normal 40-350 [facility] ([place]) Comment on above: Result Comment: No te - New Reference Range in effect 20 Performed By: #### A DIFF, ANEU, IMMUN, CMP, GFR, CBC #### [address] [address] IgG [Mass/Vol] 932 mg/dL Normal 650-1600 [facility] ([place]) Comment on above: Result Comment: No te - New Reference Range in effect 20 Performed By: #### A DIFF, ANEU, IMMUN, CMP, GFR, CBC #### [address] [address] IgM [Mass/Vol] 100 mg/dL Normal 50-300 [facility] ([place]) Comment on above: Result Comment: No te - New Reference Range in effect 20 Performed By: #### A DIFF, ANEU, IMMUN, CMP, GFR, CBC #### [place] [address] MRI BRAIN W/ + W/O CONTRASTo n 05-19-2023 MRI BRAIN W/ + W/O CONTRAST ADDENDUM ADDENDUM: Request for addendum was submitted regarding the remote lacunar infarct mentioned in the findings and questioning if it was new from 06/09. The remote lacunar infarct in the right cerebellum is seen on axial image 5 of series 6 on this exam. In retrospect, this was also likely present on the 06/09 examination on image 6 of series 7 although is seen to much better advantage on the current examination due to slice selection. Interpreted by: Ora oJse MD Preliminary Report By: Ora Jose MD Electronically signed By Ora Jose MD Dictated Date: 05/19/2023 9:35:36 AM Prelim Date: 05/19/2023 9:41:58 AM Sign Date: 05/19/2023 9:41:58 AM Ordering Provider: JOSE ROYAL ORIGINAL EXAMINATION: MRI OF THE BRAIN WITHOUT AND WITH CONTRAST 04/17/2023 4:33 pm TECHNIQUE: Multiplanar multisequence MRI of the head/brain was performed without and with the administration of intravenous contrast. COMPARISON: 05/21/2022 HISTORY: ORDERING SYSTEM PROVIDED HISTORY: Reason for Exam: MS Multiple sclerosis FINDINGS: INTRACRANIAL STRUCTURES/VENTRICLE S: There is no acute infarct. No mass effect or midline shift. No evidence of an acute intracranial hemorrhage. The ventricles and sulci are normal in size and configuration. The sellar/suprasellar regions appear unremarkable. The normal signal voids within the major intracranial vessels appear maintained. No abnormal focus of enhancement is seen within the brain. 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 Bilateral FLAIR hyperintense lesions in a pattern consistent with provided history of multiple sclerosis are redemonstrated and not significantly changed from the prior examination. None of the lesions restrict diffusion or enhance. A few of the lesions demonstrate T1 hypointensity consistent with axonal loss. ORBITS: The visualized portion of the orbits demonstrate no acute abnormality. SINUSES: A mucous retention cyst is shown in the right maxillary sinus. The remaining paranasal sinuses are predominantly clear. Trace nonspecific left mastoid signal. The right mastoids appear clear. BONES/SOFT TISSUES: The bone marrow signal intensity appears normal. The soft tissues demonstrate no acute abnormality. IMPRESSION: Findings consistent with provided history of multiple sclerosis without significant change from the prior exam or evidence of active demyelination. Interpreted by: Ora Jose MD Preliminary Report By: Ora Jose MD Electronically signed By Ora Jose MD Dictated Date: 04/24/2023 3:26:37 PM Prelim Date: 04/24/2023 3:33:53 PM Sign Date: 04/24/2023 3:33:53 PM Ordering Provider: JOSE Ames [facility] ([place]) .Auto Diffon 02-28-2023 Basophil, Absolute 0.1 10 3/mcL Normal 0.0-0.3 [facility] ([place]) Comment on above: Performed By: #### C BC, ADIFF, ANEU, CMP, GFR, IMMUN #### [address] [address] Basophils/100 WBC (Bld) 1.3 % Normal 0.0-2.5 [facility] ([place]) Comment on above: Performed By: #### C BC, ADIFF, ANEU, CMP, GFR, IMMUN #### [address] [address] Eosinophil, Absolute 0.0 10 3/mcL Normal 0.0-0.7 [facility] ([place]) Comment on above: Performed By: #### C BC, ADIFF, ANEU, CMP, GFR, IMMUN #### [address] [address] Eosinophils/100 WBC (Bld) 0.7 % Normal 0.0-6.0 [facility] ([place]) Comment on above: Performed By: #### C BC, ADIFF, ANEU, CMP, GFR, IMMUN #### [address] [address] Lymphocyte, Absolute 2.3 10 3/mcL Normal 0.9-4.3 [facility] ([place] Comment on above: Performed By: #### C BC, ADIFF, ANEU, CMP, GFR, IMMUN #### [address] [address] Lymphocytes/100 WBC (Bld) 35.3 % Normal 20.0-40.0 [facility] ([place]) Comment on above: Performed By: #### C BC, ADIFF, ANEU, CMP, GFR, IMMUN #### [address] [address] Monocyte, Absolute 0.5 10 3/mcL Normal 0.1-1.4 [facility] ([place]) Comment on above: Performed By: #### C BC, ADIFF, ANEU, CMP, GFR, IMMUN #### [address] [address] Monocytes/100 WBC (Bld) 8.3 % Normal 2.0-13.0 [facility] ([place]) Comment on above: Performed By: #### C BC, ADIFF, ANEU, CMP, GFR, IMMUN #### [address] [address] Neutrophils/100 WBC (Bld) 54.4 % Normal 50.0-75.0 [facility] ([place]) Comment on above: Performed By: #### C BC, ADIFF, ANEU, CMP, GFR, IMMUN #### [address] [address] .GFRon 02-28-2023 GFR >60 Normal [facility] ([place]) Comment on above: Result Comment: GFR Population mean for , Non- Americans Ages 20-29 = 116 mL/min/1.73 sq.m. Ages 30-39 = 107 mL/min/1.73 sq.m. Ages 40-49 = 99 mL/min/1.73 sq.m. Ages 50-59 = 93 mL/min/1.73 sq.m. Ages 60-69 = 85 mL/min/1.73 sq.m. Ages 70+ = 75 mL/min/1.73 sq.m. Chronic Kidney Disease: Less than 60 mL/min/1.73 square meters End Stage Renal Disease: Less than 15 mL/min/1.73 square meters Performed By: #### A DIFF, ANEU, IMMUN, CMP, GFR, CBC #### [address] [address] GFR Non- >60 Normal [facility] ([place]) Comment on above: Result Comment: GFR Population mean for , Non- Americans Ages 20-29 = 116 mL/min/1.73 sq.m. Ages 30-39 = 107 mL/min/1.73 sq.m. Ages 40-49 = 99 mL/min/1.73 sq.m. Ages 50-59 = 93 mL/min/1.73 sq.m. Ages 60-69 = 85 mL/min/1.73 sq.m. Ages 70+ = 75 mL/min/1.73 sq.m. Chronic Kidney Disease: Less than 60 mL/min/1.73 square meters End Stage Renal Disease: Less than 15 mL/min/1.73 square meters Performed By: #### A DIFF, ANEU, IMMUN, CMP, GFR, CBC #### [address] [address] .NEUABSon 02-28-2023 Neutrophil, Absolute 3.6 10 3/mcL Normal 2.3-8.1 [facility] ([place] Comment on above: Performed By: #### C BC, ADIFF, ANEU, CMP, GFR, IMMUN #### [address] [address] CBCon 02-28-2023 Erythrocyte distribution width (RBC) [Ratio] 11.9 % Normal 11.5-15.5 [facility] ([place]) Comment on above: Performed By: #### C BC, ADIFF, ANEU, CMP, GFR, IMMUN #### [address] [address] Hematocrit (Bld) [Volume fraction] 39.4 % Normal 34.0-46.0 [facility] ([place]) Comment on above: Performed By: #### C BC, ADIFF, ANEU, CMP, GFR, IMMUN #### [address] [address] Hgb 13.7 G/dL Normal 12.0-16.0 [facility] ([place]) Comment on above: Performed By: #### C BC, ADIFF, ANEU, CMP, GFR, IMMUN #### [address] [address] MCH (RBC) [Entitic mass] 33.8 pg High 27.0-33.0 [facility] ([place]) Comment on above: Performed By: #### C BC, ADIFF, ANEU, CMP, GFR, IMMUN #### [place] [address] MCHC 34.7 G/dL Normal 32.0-36.0 [facility] ([place] Comment on above: Performed By: #### C BC, ADIFF, ANEU, CMP, GFR, IMMUN #### [place] [address] MCV (RBC) [Entitic vol] 97.4 fL Normal 80.0-99.0 [facility] ([place]) Comment on above: Performed By: #### C BC, ADIFF, ANEU, CMP, GFR, IMMUN #### [place] [address] Platelet 334 10 3/mcL Normal 150-450 [facility] ([place]) Comment on above: Performed By: #### C BC, ADIFF, ANEU, CMP, GFR, IMMUN #### [place] [address] Platelet mean volume (Bld) [Entitic vol] 8.0 fL Normal 6.6-10.5 [facility] ([place]) Comment on above: Performed By: #### C BC, ADIFF, ANEU, CMP, GFR, IMMUN #### [place] [address] RBC 4.04 10 6/mcL Low 4.10-5.30 [facility] ([place] Comment on above: Performed By: #### C BC, ADIFF, ANEU, CMP, GFR, IMMUN #### [place] [address] WBC 6.6 10 3/mcL Normal 4.5-10.8 [facility] ([place] Comment on above: Performed By: #### C BC, ADIFF, ANEU, CMP, GFR, IMMUN #### [place] [address] CMPon 02-28-2023 Albumin Level 4.0 G/dL Normal 3.2-4.8 [facility] ([place]) Comment on above: Performed By: #### C BC, ADIFF, ANEU, CMP, GFR, IMMUN #### [address] [address] Albumin/Globulin [Mass ratio] 1.4 {ratio} Normal 0.9-1.6 [facility] ([place]) Comment on above: Performed By: #### C BC, ADIFF, ANEU, CMP, GFR, IMMUN #### [place] [id number] ALP [Catalytic activity/Vol] 82 U/L Normal 38-126 [facility] ([place]) Comment on above: Performed By: #### C BC, ADIFF, ANEU, CMP, GFR, IMMUN #### [place] [id number] ALT [Catalytic activity/Vol] 25 U/L Normal 10-49 [facility] ([place]) Comment on above: Performed By: #### C BC, ADIFF, ANEU, CMP, GFR, IMMUN #### [place] [id number] AST [Catalytic activity/Vol] 27 U/L Normal 8-34 [facility] ([place]) Comment on above: Performed By: #### C BC, ADIFF, ANEU, CMP, GFR, IMMUN #### [place] [id number] Bili Total 0.50 mg/dL Normal 0.20-1.20 [facility] ([place]) Comment on above: Result Comment: Use of this assay is not recommended for patients undergoing treatment with eltrombopag due to the potential for falsely elevated results. Performed By: #### C BC, ADIFF, ANEU, CMP, GFR, IMMUN #### [place] [phone] BUN/Creatinine Ratio 14.8 ratio Normal 10.0-22.0 [facility] ([place]) Comment on above: Performed By: #### C BC, ADIFF, ANEU, CMP, GFR, IMMUN #### [place] [id number] Calcium [Mass/Vol] 9.3 mg/dL Normal 8.7-10.4 [facility] ([place]) Comment on above: Performed By: #### C BC, ADIFF, ANEU, CMP, GFR, IMMUN #### [address] [address] Chloride [Moles/Vol] 110 mmol/L Normal 98-110 [facility] ([place]) Comment on above: Performed By: #### C BC, ADIFF, ANEU, CMP, GFR, IMMUN #### [address] [address] CO2 [Moles/Vol] 28 mmol/L Normal 22-32 [facility] ([place]) Comment on above: Performed By: #### C BC, ADIFF, ANEU, CMP, GFR, IMMUN #### [address] [address] Creatinine [Mass/Vol] 0.81 mg/dL Normal 0.50-1.20 [facility] ([place]) Comment on above: Performed By: #### C BC, ADIFF, ANEU, CMP, GFR, IMMUN #### [address] [address] Electrolyte Balance 6.0 mEq/L Normal 4.0-15.0 [facility] ([place]) Comment on above: Performed By: #### C BC, ADIFF, ANEU, CMP, GFR, IMMUN #### [address] [address] Globulin 2.9 G/dL Normal 1.5-3.8 [facility] ([place] Comment on above: Performed By: #### C BC, ADIFF, ANEU, CMP, GFR, IMMUN #### [address] [address] Glucose [Mass/Vol] 86 mg/dL Normal 70-110 [facility] ([place] Comment on above: Performed By: #### C BC, ADIFF, ANEU, CMP, GFR, IMMUN #### [address] [address] Potassium [Moles/Vol] 4.1 mmol/L Normal 3.5-5.0 [facility] ([place]) Comment on above: Performed By: #### C BC, ADIFF, ANEU, CMP, GFR, IMMUN #### [address] [address] Sodium [Moles/Vol] 144 mmol/L Normal 136-145 [facility] ([place]) Comment on above: Performed By: #### C BC, ADIFF, ANEU, CMP, GFR, IMMUN #### [address] [address] Total Protein 6.9 G/dL Normal 5.7-8.2 [facility] ([place]) Comment on above: Result Comment: No te - New Reference Range in effect 20 Performed By: #### C BC, ADIFF, ANEU, CMP, GFR, IMMUN #### [address] [address] Urea nitrogen [Mass/Vol] 12.0 mg/dL Normal 8.0-22.0 [facility] ([place]) Comment on above: Performed By: #### C BC, ADIFF, ANEU, CMP, GFR, IMMUN #### [address] [address] IMMUNon 02-28-2023 IgA [Mass/Vol] 256 mg/dL Normal 40-350 [facility] ([place]) Comment on above: Result Comment: No te - New Reference Range in effect 20 Performed By: #### A DIFF, ANEU, IMMUN, CMP, GFR, CBC #### [address] [address] IgG [Mass/Vol] 1128 mg/dL Normal 650-1600 [facility] ([place]) Comment on above: Result Comment: No te - New Reference Range in effect 20 Performed By: #### A DIFF, ANEU, IMMUN, CMP, GFR, CBC #### [address] [address] IgM [Mass/Vol] 120 mg/dL Normal 50-300 [facility] ([place]) Comment on above: Result Comment: No te - New Reference Range in effect 20 Performed By: #### A DIFF, ANEU, IMMUN, CMP, GFR, CBC #### [place] [id number] [place] [address] LABORATORYOrdered By: SYSTEM SYSTEM on 06-10-2022 Albumin BCP dye [Mass/Vol] 4.3 G/dL Invalid Interpretation Code 3.2 - 4.8 G/dL ADM SS Albumin/Globulin [Mass ratio] 1.3 {ratio} Invalid Interpretation Code 0.9 - 1.6 ratio AH ADM SS ALP [Catalytic activity/Vol] 83 U/L Invalid Interpretation Code 38 - 126 U/L ADM SS ALT No additional P-5'-P [Catalytic activity/Vol] 28 U/L Invalid Interpretation Code 10 - 49 U/L ADM SS AST [Catalytic activity/Vol] 32 U/L Invalid Interpretation Code 8 - 34 U/L ADM SS Basophils (Bld) [#/Vol] 0.1 103/mcL Invalid Interpretation Code 0.0 - 0.3 10^3/mcL AH Workflow SS Basophils/100 WBC (Bld) 0.7 % Invalid Interpretation Code 0.0 - 2.5 % AH Workflow SS Bili Indirect 0.5 mg/dL Invalid Interpretation Code 0.1 - 10.0 mg/dL Chemistry S Bilirubin [Mass/Vol] 0.60 mg/dL Invalid Interpretation Code 0.20 - 1.20 mg/dL ADM SS Bilirubin.conjugated [Mass/Vol] 0.1 mg/dL Invalid Interpretation Code 0.0 - 0.4 mg/dL ADM SS Eosinophils (Bld) [#/Vol] 0.0 103/mcL Invalid Interpretation Code 0.0 - 0.7 10^3/mcL Workflow SS Eosinophils/100 WBC (Bld) 0.6 % Invalid Interpretation Code 0.0 - 6.0 % Workflow SS Erythrocyte distribution width (RBC) [Ratio] 12.6 % Invalid Interpretation Code 11.5 - 15.5 % AH Workflow SS Globulin 3.3 G/dL Invalid Interpretation Code 1.5 - 3.8 G/dL ADM SS HBV surface Ag IA Ql Non-Reactive (06/10/22 12:13 PM) Invalid Interpretation Code Non-Reactive ADM SS Hematocrit (Bld) [Volume fraction] 44.1 % Invalid Interpretation Code 34.0 - 46.0 % AH Workflow SS Hemoglobin (Bld) [Mass/Vol] 15.1 G/dL Invalid Interpretation Code 12.0 - 16.0 G/dL AH Workflow SS IgA [Mass/Vol] 284 mg/dL Invalid Interpretation Code 40 - 350 mg/dL AH ADM SS IgG [Mass/Vol] 1096 mg/dL Invalid Interpretation Code 650 - 1600 mg/dL AH ADM SS IgM [Mass/Vol] 168 mg/dL Invalid Interpretation Code 50 - 300 mg/dL ADM SS Lymphocytes (Bld) [#/Vol] 2.6 103/mcL Invalid Interpretation Code 0.9 - 4.3 10^3/mcL AH Workflow SS Lymphocytes/100 WBC (Bld) 28.9 % Invalid Interpretation Code 20.0 - 40.0 % AH Workflow SS MCH (RBC) [Entitic mass] 33.0 pg Invalid Interpretation Code 27.0 - 33.0 pg AH Workflow SS MCHC 34.3 G/dL Invalid Interpretation Code 32.0 - 36.0 G/dL AH Workflow SS MCV (RBC) [Entitic vol] 96.1 fL Invalid Interpretation Code 80.0 - 99.0 fL AH Workflow SS Monocytes (Bld) [#/Vol] 0.5 103/mcL Invalid Interpretation Code 0.1 - 1.4 10^3/mcL AH Workflow SS Monocytes/100 WBC (Bld) 5.9 % Invalid Interpretation Code 2.0 - 13.0 % AH Workflow SS Neutrophils (Bld) [#/Vol] 5.7 103/mcL Invalid Interpretation Code 2.3 - 8.1 10^3/mcL AH Workflow SS Neutrophils/100 WBC (Bld) 63.9 % Invalid Interpretation Code 50.0 - 75.0 % AH Workflow SS Platelet mean volume (Bld) [Entitic vol] 7.4 fL Invalid Interpretation Code 6.6 - 10.5 fL AH Workflow SS Platelets (Bld) [#/Vol] 397 103/mcL Invalid Interpretation Code 150 - 450 10^3/mcL AH Workflow SS Protein [Mass/Vol] 7.6 G/dL Invalid Interpretation Code 5.7 - 8.2 G/dL ADM SS RBC (Bld) [#/Vol] 4.59 106/mcL Invalid Interpretation Code 4.10 - 5.30 10^6/mcL AH Workflow SS WBC (Bld) [#/Vol] 9.0 103/mcL Invalid Interpretation Code 4.5 - 10.8 10^3/mcL AH Workflow SS LABORATORYOrdered By: Cecily Means on 06-10-2022 HCV Ab IA Ql Non-Reactive (06/10/22 12:13 PM) Invalid Interpretation Code Non-Reactive AH ADM SS HCV Ab IA Ql Nonreactive: Samples with a value < 0.80 are considered nonreactive (negative) for antibodies to HCV.A negative test result does not exclude the possibility of exposure to or infection with HCV. HCV antibodies may be undetectable in some stages of the infection and in some clinical conditions. Invalid Interpretation Code AH Chemistry S LABORATORYOrdered By: Raquel Flower on 04-25-2022 Appearance (Body fld) Clear (04/25/22 1:24 PM) Invalid Interpretation Code AH Manual Heme SS Cells Counted Total (CSF) [#] 1 Invalid Interpretation Code AH Manual Heme SS Comment on above: Result Comment: Rare mononuclear cell seen on cytospin slide. Color (Body fld) Colorless (04/25/22 1:24 PM) Invalid Interpretation Code AH Manual Heme SS Comment CSF See Below 1 (04/25/22 1:24 PM) Invalid Interpretation Code AH Manual Heme SS Comment on above: Result Comment: This specimen will be reviewed by the pathologist and an additional report will be issued under the prefix MI and cross-referenced to the Cytology specimen, if appropriate. Lactic acid is not performed on CSF containing 5 or fewer WBC/mm3. RBC (CSF) [#/Vol] 1 1 Invalid Interpretation Code 0 - 1 /mm3 AH Manual Heme SS WBC (Body fld) [#/Vol] /mm3 1 Invalid Interpretation Code 0 - 5 /mm3 AH Manual Heme SS LABORATORYOrdered By: Carrie Villalobos on 04-25-2022 GLU CSF Spec CSF (04/25/22 1:24 PM) Invalid Interpretation Code AH Chemistry S Prot CSF Spec CSF (04/25/22 1:24 PM) Invalid Interpretation Code AH Chemistry S LABORATORYOrdered By: [employer] on 04-25-2022 Glucose (CSF) [Mass/Vol] 65 mg/dL Invalid Interpretation Code 40 - 70 mg/dL AH ADM SS Protein (CSF) [Mass/Vol] 26.5 mg/dL Invalid Interpretation Code 8.0 - 32.0 mg/dL AH ADM SS Platelets (Bld) [#/Vol] 363 103/mcL Invalid Interpretation Code 150 - 450 10^3/mcL AH Workflow SS LABORATORYOrdered By: Saloni Garcia on 04-25-2022 INR Coag (PPP) [Relative time] 1.0 {INR} Invalid Interpretation Code AH Auto Coag SS PT Coag (PPP) [Time] 11.7 s Invalid Interpretation Code 9.0 - 14.9 seconds Auto Coag SS No Panel Informationon 04-25 GS Sedimented No organisms seen. [facility] MRI BRAIN W/WO CONTRASTon MRI BRAIN W/WO CONTRAST RALPH BURGER Female [id number] Ordering physician: Hanna Oliveira LOC:MRI [id number] Attending physician: Hanna Oliveira 1970 51 DOS: 03/26/22 Acc#: [id number] Exam/Proc: MRI BRAIN W/WO CONTRAST Dept: [facility] HISTORY: Abnormal cord signal at the conus. COMPARISON: Thoracic spine MR, 12 March 2022. Lumbar spine MR, 26 February 2022. TECHNIQUE: 1. Sagittal and axial T1-weighted images. 2. Axial FLAIR images. 3. Axial T2-weighted and T2*-weighted images. 4. Axial diffusion-weighted images with ADC map. 5. Axial, sagittal and coronal T1-weighted images following uncomplicated administration of intravenous gadolinium contrast. FINDINGS: There are mild punctate and nodular T2 hyperintensities in the cerebral white matter, several involving the roof of the corpus callosum. There is no abnormal enhancement or restriction of diffusion associated with any of the lesions to suggest an acute demyelinating process. The ventricles and sulci are normal in size and configuration there are no abnormal intra or extra-axial fluid collections. Sullivan-white matter differentiation is maintained. The orbital contents are normal in appearance. Paranasal sinuses are clear. IMPRESSION: Findings are consistent with demyelinating disease. No abnormal enhancement or restriction of diffusion to suggest an acute demyelinating process. Electronically signed By Moisés Glaser MD 03/26/2022 12:03:08 PM EST Workstation ID : [id number] REPORT SIGNATURE ON FILE Electronically Signed Date/Time: 03/26/22 1203 Dictated Date/time: 03/26/22 1159 CC: [facility] MRI CERVICAL SPINE W/WO CONT RAon 03-15-2022 MRI CERVICAL SPINE W/WO RALPH DELEON Female [id number] Ordering physician: Hanna Oliveira LOC:MRI [id number] Attending physician: Hanna Oliveira 1970 51 DOS: 03/12/22 Acc#: [id number] Exam/Proc: MRI CERVICAL SPINE W/WO CONTRA Dept: [facility] HISTORY: Abnormal finding on lumbar spine MR COMPARISON: Lumbar spine MR 26 February 2022. TECHNIQUE: 1. Sagittal T1-weighted images. 2. Sagittal T2-weighted images with and without fat saturation. 3. Axial T1-weighted images. 4. Axial T2-weighted images. 5. Axial and sagittal T1-weighted images following uncomplicated administration of gadolinium contrast. FINDINGS: There is no abnormal signal within the cervical spinal cord. There is no abnormal enhancement of the cord or its coverings. The visualized portions of the cord and base of the brain are unremarkable in appearance. There are mild disc bulges at a few levels; the cervical spine is otherwise unremarkable in appearance. There is no stenosis. IMPRESSION: Mild degenerative changes. No cord abnormality. Electronically signed By Moisés Glaser MD 03/15/2022 9:11:36 AM EST Workstation ID : [id number] REPORT SIGNATURE ON FILE Electronically Signed Date/Time: 03/15/22 0911 Dictated Date/time: 03/15/22 0909 CC: [facility] MRI THORACIC SPINE W/WO CONT RAon 03-15-2022 MRI THORACIC SPINE W/WO RALPH DELEON Female [id number] Ordering physician: Hanna Oliveira LOC:MRI [id number] Attending physician: Hanna Oliveira 1970 51 DOS: 03/12/22 Acc#: [id number] Exam/Proc: MRI THORACIC SPINE W/WO CONTRA Dept: [facility] HISTORY: Abnormal cord signal on lumbar spine MR COMPARISON: Lumbar spine MR 26 February 2022 TECHNIQUE: 1. Sagittal T1-weighted images. 2. Sagittal T2-weighted images with and without fat saturation. 3. Axial T1-weighted images. 4. Axial T2-weighted images. 5. Axial and sagittal T1-weighted images following uncomplicated administration of intravenous gadolinium contrast. FINDINGS: There is a somewhat ill-defined 1 cm focus of T2 hyperintensity in the central cord at the T12-L1 level. There is no associated enhancement. No other cord lesions are seen. The cord is otherwise unremarkable in appearance. Alignment is within normal limits. The individual vertebral bodies are intact. There is no stenosis. IMPRESSION: Abnormal signal in the distal cord is again seen, not significantly changed since the comparison. Given the appearance of the lesion and the lack of expansion or narrowing of the cord and this lesion as well as lack enhancement, demyelinating disease is the most likely etiology. Electronically signed By Moisés Glaser MD 03/15/2022 9:18:47 AM EST Workstation ID : [id number] REPORT SIGNATURE ON FILE Electronically Signed Date/Time: 03/15/22917 Dictated Date/time: 03/15/22910 CC: [facility] MRI LUMBAR SPINE W/O CONTRAS Ton 03-01-2022 MRI LUMBAR SPINE W/O CONTRAST RALPH BURGER Female [id number] Ordering physician: Hanna Oliveira LOC:MRI [id number] Attending physician: Hanna Oliveira 1970 51 DOS: 02/26/22 [facility]#: [id number] Exam/Proc: MRI LUMBAR SPINE W/O CONTRAST Dept: [facility] HISTORY: Low back pain COMPARISON: No TECHNIQUE: 1. Sagittal T1-weighted images. 2. Sagittal T2-weighted images with and without fat saturation. 3. Axial T1-weighted images. 4. Axial T2-weighted images. FINDINGS: There are 5 lumbar type vertebral bodies for the purpose of this dictation. Alignment is within normal limits. The individual vertebral bodies are intact. There is disc desiccation and disc space narrowing in the lower lumbar spine. The tip of the conus is the L2 level. There is a 1 cm somewhat ill-defined T2 hyperintensity in the mid conus at the L1-L2 level. There is no stenosis. Specific findings by level: L2-L3: There is mild facet hypertrophy. L3-L4: There is a mild posterior disc bulge. There is a superimposed mild left neural foraminal extrusion. There is mild facet and ligamentum flavum hypertrophy. There is mild left neural foraminal narrowing. L4-L5: There is a mild posterior disc bulge with an annular tear. There is mild facet hypertrophy. L5-S1: There is a mild posterior disc bulge with a [id number] superimposed extrusion spanning the right parasagittal and subarticular compartments. This abuts but does not significantly displace the descending right S1 nerve root. IMPRESSION: 1 cm signal abnormality in the conus. MR of the cervical and thoracic spine with contrast is recommended for further evaluation. Mild multilevel degenerative changes; no stenosis. This includes neural foraminal narrowing at L3-L4 and a right-sided extrusion at L5-S1. Electronically signed By Moisés Glaser MD 03/01/2022 8:40:37 AM EST Workstation ID : [id number] REPORT SIGNATURE ON FILE Electronically Signed Date/Time: 03/01/22839 Dictated Date/time: 03/01/22823 CC: Normal [facility] LABORATORYOrdered By: SYSTEM SYSTEM on 08-02-2021 Albumin BCP dye [Mass/Vol] 3.9 G/dL Invalid Interpretation Code 3.2 - 4.8 G/dL AH ADM SS Basophils (Bld) [#/Vol] 0.10 103/mcL Invalid Interpretation Code 0.00 - 0.27 10^3/mcL AH Remisol SS Basophils/100 WBC (Bld) 1.3 % Invalid Interpretation Code 0.0 - 2.5 % AH Remisol SS Calcium [Mass/Vol] 9.7 mg/dL Invalid Interpretation Code 8.7 - 10.4 mg/dL AH ADM SS Chloride [Moles/Vol] 107 mmol/L Invalid Interpretation Code 98 - 110 mEq/L AH ADM SS CK [Catalytic activity/Vol] 567 U/L Invalid Interpretation Code 7 - 185 U/L AH ADM SS CO2 [Moles/Vol] 29 mmol/L Invalid Interpretation Code 22 - 32 mEq/L AH ADM SS Creatinine [Mass/Vol] 1.02 mg/dL Invalid Interpretation Code 0.50 - 1.20 mg/dL AH ADM SS Electrolyte Balance 5.0 mEq/L Invalid Interpretation Code 4.0 - 15.0 mEq/L AH ADM SS Eosinophils (Bld) [#/Vol] 0.10 103/mcL Invalid Interpretation Code 0.00 - 0.65 10^3/mcL AH Remisol SS Eosinophils/100 WBC (Bld) 1.2 % Invalid Interpretation Code 0.0 - 6.0 % AH Remisol SS Erythrocyte distribution width (RBC) [Ratio] 12.5 % Invalid Interpretation Code 11.5 - 15.5 % AH Remisol SS GFR/1.73 sq M.predicted among blacks MDRD (S/P/Bld) [Vol rate/Area] ml/min/1.73sqm Invalid Interpretation Code AH Chemistry S GFR/1.73 sq M.predicted among non-blacks MDRD (S/P/Bld) [Vol rate/Area] 58 ml/min/1.73sqm Invalid Interpretation Code Chemistry S Glucose [Mass/Vol] 85 mg/dL Invalid Interpretation Code 70 - 110 mg/dL AH ADM SS Hematocrit (Bld) [Volume fraction] 40.7 % Invalid Interpretation Code 34.0 - 46.0 % AH Remisol SS Hemoglobin (Bld) [Mass/Vol] 13.8 G/dL Invalid Interpretation Code 12.0 - 16.0 G/dL AH Remisol SS Lymphocytes (Bld) [#/Vol] 2.20 103/mcL Invalid Interpretation Code 0.90 - 4.32 10^3/mcL AH Remisol SS Lymphocytes/100 WBC (Bld) 42.9 % Invalid Interpretation Code 20.0 - 40.0 % AH Remisol SS MCH (RBC) [Entitic mass] 31.8 pg Invalid Interpretation Code 27.0 - 33.0 pg AH Remisol SS MCHC (RBC) [Mass/Vol] 34.0 G/dL Invalid Interpretation Code 32.0 - 36.0 G/dL AH Remisol SS MCV (RBC) [Entitic vol] 93.6 fL Invalid Interpretation Code 80.0 - 99.0 fL AH Remisol SS Monocytes (Bld) [#/Vol] 0.30 103/mcL Invalid Interpretation Code 0.09 - 1.40 10^3/mcL AH Remisol SS Monocytes/100 WBC (Bld) 6.1 % Invalid Interpretation Code 2.0 - 13.0 % AH Remisol SS Neutrophils (Bld) [#/Vol] 2.50 103/mcL Invalid Interpretation Code 2.25 - 8.10 10^3/mcL AH Remisol SS Neutrophils/100 WBC (Bld) 48.5 % Invalid Interpretation Code 50.0 - 75.0 % AH Remisol SS Parathyrin.intact [Mass/Vol] 98.4 pg/mL Invalid Interpretation Code 18.5 - 88.0 pg/mL AH ADM SS Phosphate [Mass/Vol] 4.3 mg/dL Invalid Interpretation Code 2.4 - 5.1 mg/dL AH ADM SS Platelet mean volume (Bld) [Entitic vol] 7.4 fL Invalid Interpretation Code 6.6 - 10.5 fL AH Remisol SS Platelets (Bld) [#/Vol] 296 103/mcL Invalid Interpretation Code 150 - 450 10^3/mcL AH Remisol SS Potassium [Moles/Vol] 3.7 mmol/L Invalid Interpretation Code 3.5 - 5.0 mEq/L AH ADM SS RBC (Bld) [#/Vol] 4.35 106/mcL Invalid Interpretation Code 4.10 - 5.30 10^6/mcL AH Remisol SS Sodium [Moles/Vol] 141 mmol/L Invalid Interpretation Code 136 - 145 mEq/L AH ADM SS TSH Qn 3.436 mIU/mL Invalid Interpretation Code 0.550 - 4.780 mIU/mL AH ADM SS Urea nitrogen [Mass/Vol] 19.0 mg/dL Invalid Interpretation Code 8.0 - 22.0 mg/dL AH ADM SS Urea nitrogen/Creatinine [Mass ratio] 18.6 ratio Invalid Interpretation Code 10.0 - 22.0 ratio AH ADM SS Uric Acid Lvl 5.3 mg/dL Invalid Interpretation Code 3.1 - 7.8 mg/dL AH ADM SS WBC (Bld) [#/Vol] 5.20 103/mcL Invalid Interpretation Code 4.50 - 10.80 10^3/mcL AH Remisol SS LABORATORYOrdered By: Roseanna Dorsey on 08-02-2021 Appearance (U) Clear (08/02/21 6:46 AM) Invalid Interpretation Code Clear AH Auto Urine SS Bilirubin Ql (U) Negative (08/02/21 6:46 AM) Invalid Interpretation Code Neg-Trace AH Auto Urine SS Color (U) Yellow (08/02/21 6:46 AM) Invalid Interpretation Code AH Auto Urine SS Glucose Test strip (U) [Mass/Vol] Negative Invalid Interpretation Code Negativemg/dL AH Auto Urine SS Hemoglobin Auto test strip (U) [Mass/Vol] Negative (08/02/21 6:46 AM) Invalid Interpretation Code Neg-Trace AH Auto Urine SS Ketones Ql (U) Negative Invalid Interpretation Code Neg-Tracemg/d L AH Auto Urine SS UA Leuk Est Negative (08/02/21 6:46 AM) Invalid Interpretation Code Negative AH Auto Urine SS UA Nitrite Negative (08/02/21 6:46 AM) Invalid Interpretation Code Negative AH Auto Urine SS UA pH 5.5 (08/02/21 6:46 AM) Invalid Interpretation Code 5.0 - 8.0 AH Auto Urine SS UA Protein Negative Invalid Interpretation Code Negativemg/dL AH Auto Urine SS UA Spec Grav 1.015 (08/02/21 6:46 AM) Invalid Interpretation Code 1.006-1.029 AH Auto Urine SS UA Specimen Type Void (08/02/21 6:46 AM) Invalid Interpretation Code AH Auto Urine SS UA Urobilinogen 0.2 E.U./dL Invalid Interpretation Code 0.2-1.0E.U./d L AH Auto Urine SS LABORATORYOrdered By: Carrie Villalobos on 08-02-2021 Calcium.ionized (Bld) [Mass/Vol] 1.23 mmol/L Invalid Interpretation Code 1.12 - 1.32 mmol/L Auto Chem SS LABORATORYOrdered By: James Barrientos on 08-02-2021 Eosinophils Green stain Ql (Urine sed) 0 (08/02/21 6:46 AM) Invalid Interpretation Code AH Manual Heme SS Specimen source Nom (Unsp spec) Urine (08/02/21 6:46 AM) Invalid Interpretation Code AH Manual Heme SS Vital Signs Date Time Vital Sign Value Performing Clinician Facility 04-25-2022 14:38-0500 Diastolic blood pressure 82 mm[Hg] LELE JIMENEZ PA [facility] 04-25-2022 14:38-0500 Heart rate 70 /min LELE JIMENEZ PA [facility] 04-25-2022 14:38-0500 Mean blood pressure 99 mm[Hg] LELE JIMENEZ PA [facility] 04-25-2022 14:38-0500 Respiratory rate 18 /min LELE JIMENEZ PA [facility] 04-25-2022 14:38-0500 Systolic blood pressure 134 mm[Hg] LELE JIMENEZ PA [facility] 04-25-2022 13:38-0500 Diastolic blood pressure 75 mm[Hg] LELE JIMENEZ PA [facility] 04-25-2022 13:38-0500 Heart rate 74 /min LELE JIMENEZ PA [facility] 04-25-2022 13:38-0500 Mean blood pressure 93 mm[Hg] LELE JIMENEZ PA [facility] 04-25-2022 13:38-0500 Respiratory rate 16 /min LELE JIMENEZ PA [facility] 04-25-2022 13:38-0500 Systolic blood pressure 128 mm[Hg] LELE JIMENEZ PA [facility] 04-25-2022 11:41-0500 Body height 160 cm LELE JIMENEZ PA [facility] 04-25-2022 11:41-0500 Body temperature 98.6 [degF] LELE JIMENEZ PA [facility] 04-25-2022 11:41-0500 Body weight 56 kg LELE JIMENEZ PA [facility] 04-25-2022 11:41-0500 Body weight 21.88 kg/m2 LELE JIMENEZ PA [facility] 04-25-2022 11:41-0500 diastolic 72 mm[Hg] LELE JIMENEZ PA [facility] 04-25-2022 11:41-0500 Heart rate 77 /min LELE JIMENEZ PA [facility] 04-25-2022 11:41-0500 Respiratory rate 16 /min LELE JIMENEZ PA [facility] 04-25-2022 11:41-0500 systolic 121 mm[Hg] LELE JIMENEZ PA [facility] 04-19-2022 08:56-0400 Diastolic Blood Pressure NBP [address] JUAN CERVANTES DO [facility] 04-19-2022 08:56-0400 Heart rate 56 /min DR JUAN CERVANTES DO [facility] 04-19-2022 08:56-0400 Respiratory rate 12 /min DR JUAN CERVANTES DO [facility] 04-19-2022 08:56-0400 Systolic Blood Pressure NBP [address] JUAN CERVANTES DO [facility] 04-19-2022 08:42-0400 Diastolic Blood Pressure NBP [address] JUAN CERVANTES DO [facility] 04-19-2022 08:42-0400 Heart rate 57 /min DR JUAN CERVANTES DO [facility] 04-19-2022 08:42-0400 Respiratory rate 15 /min DR JUAN CERVANTES DO [facility] 04-19-2022 08:42-0400 Systolic Blood Pressure NBP [address] JUAN CERVANTES DO [facility] 04-19-2022 08:37-0400 Diastolic Blood Pressure NBP [address] JUAN CERVANTES DO [facility] 04-19-2022 08:37-0400 Heart rate 62 /min DR JUAN CERVANTES DO [facility] 04-19-2022 08:37-0400 Respiratory rate 16 /min DR JUAN CERVANTES DO [facility] 04-19-2022 08:37-0400 Systolic Blood Pressure NBP [address] JUAN CERVANTES DO [facility] 04-19-2022 08:13-0400 Body height [address] JUAN CERVANTES DO [facility] 04-19-2022 08:13-0400 Body weight 56.[address] JUAN CERVANTES DO [facility] 04-19-2022 08:13-0400 Body weight 22.11 kg/m2 DR JUAN CERVANTES DO [facility] 04-19-2022 08:13-0400 diastolic 94 mm[Hg] DR JUAN CERVANTES DO [facility] 04-19-2022 08:13-0400 Heart rate 71 /min DR JUAN CERVANTES DO [facility] 04-19-2022 08:13-0400 systolic 126 mm[Hg] DR JUAN CERVANTES DO [facility] Encounters Encounter Date Encounter Type Care Provider Facility Start: 03-04-2025 End: 03-04-2025 ambulatory MD VITO LINN MD Facility:A Start: 01-31-2025 End: 01-31-2025 ambulatory MD VITO LINN MD Facility:A Start: 01-17-2025 End: 01-17-2025 ambulatory MD LELE MALLORY Facility:A Start: 01-11-2025 End: 01-11-2025 ambulatory MD VITO LINN MD Facility:A Start: 12-23-2024 ambulatory MD LELE MALLORY Fac ility:A Start: 11-22-2024 End: 11-22-2024 ambulatory GELACIO ALMARAZ MD Facility:D Start: 08-23-2024 End: 08-23-2024 ambulatory SHABBIR STUART APRN-SOFTWARE ENGINEER Facility:A Start: 07-23-2024 End: 07-23-2024 ambulatory MD VITO LINN MD Facility:D Start: 05-31-2024 End: 05-31-2024 ambulatory MD VITO LINN MD Facility:A Start: 05-29-2024 End: 07-01-2024 ambulatory HEENA SCOTT DO Facility:A Start: 04-30-2024 ambulatory MD VITO LINN MD F acility:A Start: 04-09-2024 End: 04-09-2024 ambulatory HEENA SCOTT DO Facility:A Start: 03-21-2024 End: 03-21-2024 ambulatory MD VITO LINN MD Facility:A Start: 02-28-2024 End: 02-28-2024 Patient encounter procedure SHABBIR STUART ENRICHMENT DIRECTOR-SOFTWARE ENGINEER [facility] Start: 02-14-2024 End: 02-14-2024 ambulatory MD VITO LINN MD Facility:A Start: 02-14-2024 End: 02-14-2024 Patient encounter procedure VITO LINN MD [facility] Start: 02-07-2024 ambulatory MD VITO LINN MD F acility:A Start: 01-27-2024 End: 01-27-2024 ambulatory MD VITO LINN MD Facility:A Start: 11-27-2023 End: 11-27-2023 ambulatory MD VITO LINN MD Facility:A Start: 09-04-2023 End: 09-04-2023 ambulatory JOSE ROYAL MD Facility:A Start: 04-17-2023 End: 04-17-2023 ambulatory JOSE ROYAL MD Facility:A Start: 02-27-2023 End: 03-03-2023 ambulatory JOES ROYAL MD Facility:A Start: 12-13-2022 End: 12-13-2022 Patient encounter procedure VITO LINN MD [facility] Start: 06-10-2022 End: 06-10-2022 Patient encounter procedure LELE ELLIOTT [facility] Start: 04-25-2022 End: 04-25-2022 Patient encounter procedure LELE GAONA MA [facility] Start: 04-20-2022 End: 04-20-2022 Patient encounter procedure LELE GAONA MA [facility] Start: 04-19-2022 End: 04-19-[address] JUAN CERVANTES DO [facility] Start: 04-13-2022 End: 04-13-[address] JUAN CERVANTES DO [facility] Start: 03-26-2022 ambulatory Hanna Oliveira Facility :[facility] Start: 03-12-2022 ambulatory Hanna Oliveira Facility :[facility] Start: 02-26-2022 ambulatory Hanna Oliveira Facility :[facility] Start: 08-02-2021 End: 08-02-2021 Patient encounter procedure ANGELIA KENDRICK MD [facility] Procedures Date Procedure Procedure Detail Performing Clinician Start: 04-19-2022 PM Inj Spine L/S [facility] SN [address] DR JUAN CERVANTES DO Comment on above: auto-populated from documented surgical case Start: 06-28-[address] JUAN CERVANTES DO Immunizations Immunization Date Immunization Notes Care Provider Fa cility 04-21-2023 COVID-19, mRNA, LNP- S, PF, 50 mcg/0.5 mL; Translations: [Spikevax () PF (cvx 312)] VITO LINN MD [facility] 03-03-2023 influenza, injectabl e, quadrivalent, contains preservative; Translations: [Flucelvax PF Quadrivalent ] VITO LINN MD [facility] Payers Date Payer Category Payer Unknown [id number] 2022 Self-pay 2022 Unknown [id number] 1970 Unknown [id number] 2.16.8 [id number] 1972 Unknown [id number] 2.16.8 40.1.136428.3.579.2.627 1972 Unknown [id number] 2.16.8 40.1.258216.3.579.2. 1972 Unknown [id number] 2.16.8 40.1.908158.3.579.2.627 1972 Unknown [id number] 2.16.8 40.1.523201.3.579.2.627 1972 Unknown [id number] 2.16.8 40.1.864346.3.579.2.627 1972 Unknown [id number] 2.16.8 40.1.944518.3.579.2.627 1972 Unknown [id number] 2.16. 840.1.916156.3.579.2.627 1972 Unknown [id number] 2.16.8 40.1.487291.3.579.2.627 1972 Unknown [id number] 2.16. 840.1.301604.3.579.2.627 1972 Unknown [id number] 2.16. 840.1.433687.3.579.2.627 1972 Unknown [id number] 2.16. 840.1.304554.3.579.2.627 1972 Unknown [id number] 2.16. 840.1.712334.3.579.2.627 1972 Unknown [id number] 2.16. 840.1.879221.3.579.2.627 1972 Unknown [id number] 2.16.8 40.1.684736.3.579.2.627 1972 Unknown [id number] 2.16.8 40.1.211193.3.579.2.627 1972 Unknown [id number] 2.16.8 40.1.621063.3.579.2.627 1972 Unknown [id number] 2.16.8 40.1.405268.3.579.2.627 1972 Unknown [id number] 2.16.8 40.1.032982.3.579.2.627 1972 Unknown [id number] 2.16.8 40.1.589787.3.579.2.627 Unknown [id number] 2.16.8 40.1.089549.3.579.2.630 Unknown [id number] 2.16.8 40.1.293300.3.579.2.630 Unknown [id number] 2.16.8 40.1.196473.3.579.2.630 Social History Date Type Detail Facility Start: 04-13-2022 Never smoked t obacco (finding) [facility] Sex Assigned At [facility] Functional Status Date Assessment Result Facility 04-25-2022 Functional Status ID band on, Allergy Band on, Precautions maintained [facility] 04-19-2022 Functional Status More than 8 hours [facility] Mental Status Date Assessment Result Facility 04-25-2022 Mental Status Orientation Oriented x 4 [facility] 04-25-2022 [facility] Mental Status Orientation Oriented x 4 [facility] Clinical Notes 08-02-2021 to 02-14-2024 Note Date & Type Note Facility 02-14-2024 Note Exam Date Time Procedure Performing Provider Status 02/14/24 7:47 AM VL Carotid US/Dopple r Complete - CV Auth (Verified) [facility] 06-27-2023 Note ORIGINAL FROM: [facility] [address] [place] [address] PROCEDURE FOR: RALPH BallesterosBibi LEONBURGER [address] [place] [id number] Home: PID#: [id number] Exam#: [id number] : 1970 Age: 52 TO: VITO LINN MD [address] [address] EXAMINATION: DIAGNOSTIC DIGITAL LEFT BREAST MAMMOGRAM WITH TOMOSYNTHESIS, 12/13/2022 8:00 am TECHNIQUE: Diagnostic mammography of the left breast was performed with tomosynthesis. 2D standard and 3D tomosynthesis combination imaging performed through the left breast. Computer aided detection was utilized in the interpretation of this exam. Current study was also evaluated with a Computer Aided Detection (CAD) system. COMPARISON: October 31, 2022, July 30, 2021, June 10, 2020 HISTORY: ORDERING SYSTEM PROVIDED HISTORY: Reason for Exam: LT BREAST ASYMMETRY FINDINGS: BREAST DENSITY: Heterogeneously dense No persistent asymmetry is seen on spot compression imaging of the left breast. No significant masses, calcifications, or other findings. IMPRESSION: No mammographic evidence of malignancy. The patient may return to annual mammographic screening. BIRADS: MAMMOGRAM BI-RADS: 2: Benign finding RECALL: return to screening RECALL TYPE: mammo LETTER SENT: Normal BI-RADS 1 and 2 Interpreted by: Ivette Melissa Preliminary Report By: Ivette Melissa Electronically signed By Ivette Melissa Dictated Date: 12/13/2022 8:38:25 AM Prelim Date: 12/13/2022 8:39:20 AM Sign Date: 12/13/2022 8:39:20 AM Ordering Provider: VITO LINN CLINICAL: LEFT BREAST ASYMMETRY. Engine Specialist: RAFAEL COBURN RT(Nakul)(M) letter sent: Normal BI-RADS 1 and 2 Mammogram BI-RADS: 2 [facility]06-27-2023 Note ORIGINAL FROM: [facility] [address] [place] [address] PROCEDURE FOR: RALPH BURGER [address] [place] [id number] Home: PID#: [id number] Exam#: [id number] : 1970 Age: 52 TO: VITO LINN MD [address] [address] EXAMINATION: DIAGNOSTIC DIGITAL LEFT BREAST MAMMOGRAM WITH TOMOSYNTHESIS, 12/13/2022 8:00 am TECHNIQUE: Diagnostic mammography of the left breast was performed with tomosynthesis. 2D standard and 3D tomosynthesis combination imaging performed through the left breast. Computer aided detection was utilized in the interpretation of this exam. Current study was also evaluated with a Computer Aided Detection (CAD) system. COMPARISON: October 31, 2022, July 30, 2021, June 10, 2020 HISTORY: ORDERING SYSTEM PROVIDED HISTORY: Reason for Exam: LT BREAST ASYMMETRY FINDINGS: BREAST DENSITY: Heterogeneously dense No persistent asymmetry is seen on spot compression imaging of the left breast. No significant masses, calcifications, or other findings. IMPRESSION: No mammographic evidence of malignancy. The patient may return to annual mammographic screening. BIRADS: MAMMOGRAM BI-RADS: 2: Benign finding RECALL: return to screening RECALL TYPE: mammo LETTER SENT: Normal BI-RADS 1 and 2 Interpreted by: Ivette Melissa Preliminary Report By: Ivette Melissa Electronically signed By Ivette Melissa Dictated Date: 12/13/2022 8:38:25 AM Prelim Date: 12/13/2022 8:39:20 AM Sign Date: 12/13/2022 8:39:20 AM Ordering Provider: VITO LINN CLINICAL: LEFT BREAST ASYMMETRY. Engine Specialist: RAFAEL COBURN RT(R)(M) letter sent: Normal BI-RADS 1 and 2 Mammogram BI-RADS: 2 [facility]ign [id number] ORIGINAL PROCEDURE: Lumbar puncture with fluoroscopic guidance CLINICAL STATEMENT: Lower extremity tingling, rule out MS MATERIALS RECYCLER: Claudia Zaldivar PA-C FLUOROSCOPY: 0.2 Minutes AIR KERMA DOSE: 1 mGy NEEDLE: 20 G spinal needle CSF VOLUME REMOVED: 10 mL CSF APPEARANCE: Clear PUNCTURE LEVEL: L3-4 OPENING PRESSURE: 19 cm H2O The procedure, risks, and alternatives, were discussed and all questions were answered. Written informed consent obtained. Accompanying paperwork was verified for accuracy. Directed history and physical exam performed prior to the procedure. Medication reconciliation performed by nursing personnel. Procedure was performed using a cap, sterile gown, sterile gloves, a large sterile sheet, hand hygiene and Betadine for cutaneous antisepsis. The patient was positioned prone on the table and prepped and draped in usual sterile fashion. A critical pause was performed with assisting personnel just prior to the procedure with the patient's identity confirmed using 2 identifiers, confirming site and side. Prior to sterile prep, a puncture site was selected and marked under fluoroscopy. 2% lidocaine was administered at the puncture site for local anesthesia. A needle was advanced into the thecal sac under fluoroscopic guidance. A documentation image was stored. Position was confirmed with flow of CSF from the needle. After the adequate volume was removed, the needle was removed. A Band-Aid was placed at the puncture site. The sample was submitted to the laboratory. The patient tolerated the procedure well without immediate complication. Patient condition was stable. Patient placed in supine and flat position for 1 hour post procedure. IMPRESSION: Successful fluoroscopic guided lumbar puncture. Procedure was performed by Claudia Zaldivar PA-C. I concur with the contents of this report. Interpreted by: Ravindra Simental Preliminary Report By: Claudia Zaldivar PA-C Electronically signed By Ravindra Simental Dictated Date: 04/25/2022 3:35:57 PM Prelim Date: 04/25/2022 3:40:24 PM Sign Date: 04/25/2022 11:14:39 PM Ordering Provider: LELE GAONA [id number] Discharge instructions Patient Education 04/25/2022 13:54:44 Radiology- Lumbar Puncture 10/02/2019 (CUSTOM) [place] Lumbar Puncture Discharge Instructions Interventional Radiology [facility] [address] [place] [address] Your physician has ordered a lumbar puncture for you today. A small amount of cerebrospinal fluid (CSF) that surrounds the spinal canal and brain was drained through a small needle puncture in your lower back. This fluid will be sent to the lab for testing. This procedure will usually cause some soreness around the puncture site for a day or two. Some people may experience a headache after a lumbar puncture. Please follow the instructions below to reduce the chance of experiencing complications. Diet: Resume your normal diet as tolerated. Drink at least 8 to 10 glasses of water over the next 24 hours. Activity: You will be asked to lie flat for 2 hours at the hospital following your procedure. Getting up too soon may worsen your headache. Therefore, it is important that you LIE FLAT (your head level with the rest of your body on your side, back or stomach) for the next 6 hours after you return home. Then, relax with minimal activity for the rest of the day. Avoid strenuous activity for 24 hours following the procedure. Do not lift anything more than 10 pounds for 24 hours. You may bathe/shower as usual after 24 hours. Dressing: Change the band aid as needed. It may be removed 24 hours after your procedure. Pain Control: The puncture site may be sore for 1 to 2 days following the procedure. About 1 in 5 patients develop a headache. If this occurs; follow the directions below: [id number] pain medication should be used for pain or discomfort. Please check with the physician who ordered this procedure for you for their specific recommendations. Lay flat on your back and only get up to use the restroom for the remainder of the day. ?Drink extra fluids, including caffeinated beverages, unless otherwise directed by your ordering physician. If you were sedated for this procedure: Avoid alcoholic beverages for 24 hours after your procedure. Do not drive or operate heavy machinery for 24 hours after your procedure. Do not make any legal decisions for 24 hours after your procedure. Medication: Please resume all medications today per home schedule. When to seek medial care: Foul odor, pus drainage, redness, or swelling at puncture site. Excessive bleeding from puncture site. Fever greater than 101 degrees and chills. Severe postural headache: A headache that gets worse when standing and is relieved or improves when laying down, persists regardless of bed rest and increased fluids, and last more than 24 hours following the procedure. If you experience any of these issues during the first 24 hours, please follow the instruction below: 8:00 am- 5:00 pm call [phone] After 5:00 pm call [phone] After 24 hours, contact the physician who ordered this procedure for you. Obtaining test results: Please make an appointment with your doctor to obtain your test results. They are usually availablewithin 4 to 7 business days. Do not assume everything is normal if you have not heard from your doctor or medical facility. It is important for you to follow up on all of your test results. Special Instructions: Follow Up Care 04/05/2022 11:04:42 With:MD VITO LINN MD Address: [address] [phone] When: Unknown Comments:Follow-up as needed With:LELE GAONA Address: [address] [place] [phone] When: Unknown Comments:Follow-up as scheduled With:Go to emergency room if symptoms worsen Address:Unknown When: Unknown [facility] 11-07-2022 Evaluation + Plan noteExtracted from: Title:IR Pre-Procedure H&P Author:LEXA ZALDIVAR PA-C Date:04/25/22 Interventional Radiology Focused Preprocedure History/Physical Reason for Visit MRI of head abnormal History of Presenting Illness/Planned IR Procedure Concern for demyelinating process based on recent MRI brain results. Presents for LP Allergies (2) ActiveReaction amoxicillinRASH BactrimRASH Home Medications (3) Active estradiol 1 mg oral tablet See Instructions famotidine 20 mg oral tablet Vitamin D3 25 mcg (1000 intl units) oral tablet 25 mcg = 1 tab(s), Oral, qDay Problem List/Past Medical History Back pain Surgical History Hysterectomy: 06/28/12 Family History Mother: Cancer Father: Cancer Social History Alcohol Details: Use: Never. Exercise Details: Exercise type: Jogging/Running. Days per week: 5-6 times/week. Substance Abuse Details: Use: Never. Tobacco Details: Nicotine Use: Never (less than 100 in lifetime). Physical Exam Vitals: [id number] (11:41) Systolic Blood PressureNo result Diastolic Blood PressureNo result Pulse77 (11:41) [id number] (11:41) Respiratory Rate16 (11:41) General: Alert, cooperative. _ The remainder of the physical exam is noncontributory. Labs Anticoagulation Labs Protime: 11.7 seconds (04/25/22 11:40:00) PT International Ratio: 1 ratio (04/25/22 11:40:00) Last Month Basic Metabolic Panel: Hematology: Sodium Level: 140 (04/02/22) Hgb: ------ Potassium Level: 4.2 (04/02/22) : () Phosphorus: ------ WBC: ------ Magnesium Lvl: ------ Platelet: 363 (04/25/22) BUN: 11.0 (04/02/22) PT International Ratio: 1.0 (04/25/22) Creatinine Lvl (s): 0.90 (04/02/22) : () Additional - Last Month A/G Ratio: 1.3 (04/02/22) Albumin Level: 4.1 (04/02/22) Alk Phos: 75 (04/02/22) ALT/SGPT: 35 (04/02/22) AST/SGOT: 35 (04/02/22) Bili Total: 0.80 (04/02/22) BUN/Creatinine Ratio: 12.2 (04/02/22) Calcium Lvl: 10.0 (04/02/22) Chloride: 103 (04/02/22) CO2: 32 (04/02/22) Electrolyte Balance: 5.0 (04/02/22) GFR : >60 (04/02/22) GFR Non-: >60 (04/02/22) Globulin: 3.1 (04/02/22) Glucose Level: 82 (04/02/22) Misc. Send Out: See Comments (04/20/22) Protime: 11.7 (04/25/22) PTH, Intact: 54.6 (04/02/22) Total Protein: 7.2 (04/02/22) Vit. D 25-Hydroxy: 33.8 (04/02/22) Assessment/Treatment Plan Lumbar puncture Post Procedure Discharge Plan Patient to be discharged home. Claudia Zaldivar PA-C Interventional Radiology Pager: [phone] IR dept: x [phone] Available on Cortext Future Appointments Appointment Date:05/06/2022 03:00:00 PM Scheduled Provider: Location:PAIN Appointment Type:PM EMG/NCV 1 Extremity Diagnostic Tests Pending * Angiotensin Converting Enzyme, CSF 04/25/22 * Oligoclonal Bands, Cerebrospinal Fluid 04/25/22 * IgG CSF Index 04/25/22 * Myelin Basic Protein, CSF 04/25/22 * [facility] Lab Send out (Blood Specimens) 04/25/22 * [facility] Lab Send out (Blood Specimens) 04/25/22 [facility] 11-07-2022 Summary of episode note Discharge Instructions Thank you for allowing [facility] to assist you with your healthcare needs. The following is importantdischarge information regarding your hospital visit. Your Care Team MD VITO LINN MD What to do next Scheduled Follow-Up Appointments Appointment Type When Where Contact InformationPM EMG/NCV 1 Extremity 05/06/2022 03:[address] [facility] [address] [place] [address]- Follow Up Appointments Follow Up with MD VITO LINN MD When Why: Follow-up as needed Where: [facility] [address] [facility] [place] [address] [phone] Follow Up with LELE GAONA When Why: Follow-up as scheduled Where: [address] [address] [phone] Follow Up with Go to emergency room if symptoms worsen When Allergies Bactrim (RASH) amoxicillin (RASH) Medications Please ask your primary doctor or pharmacist before taking any other medication not listed, including over the counter drugs, herbal medications, vitamins and or supplements as they may interact withyour home medications. What How Much When Instructions Last Dose Unchanged cholecalciferol (Vitamin D3 25 mcg (1000 intl units) oral tablet) 1 tab(s) by mouth Once a day Unchanged estradiol (estradiol 1 mg oral tablet) See instructions 1/ 2 tab(s) mg Oral every other Day Unchanged famotidine (famotidine 20 mg oral tablet) Please take this list to your next doctor s visit. Bring all medications you take, including over the counter medications, herbals and other supplements with you to your doctor s visit. Patients and families are reminded to discard old lists and to update any records with all medication providers or retail pharmacies. Education Materials [place] Lumbar Puncture Discharge Instructions Interventional Radiology [facility] [address] [address] Your physician has ordered a lumbar puncture for you today. A small amount of cerebrospinal fluid (CSF) that surrounds the spinal canal and brain was drained through a small needle puncture in your lower back. This fluid will be sent to the lab for testing. This procedure will usually cause some soreness around the puncture site for a day or two. Some people may experience a headache after a lumbar puncture. Please follow the instructions below to reduce the chance of experiencing complications. Diet: Resume your normal diet as tolerated. Drink at least 8 to 10 glasses of water over the next 24 hours. Activity: You will be asked to lie flat for 2 hours at the hospital following your procedure. Getting up too soon may worsen your headache. Therefore, it is important that you LIE FLAT (your head level with the rest of your body on your side, back or stomach) for the next 6 hours after you return home. Then, relax with minimal activity for the rest of the day. Avoid strenuous activity for 24 hours following the procedure. Do not lift anything more than 10 pounds for 24 hours. You may bathe/shower as usual after 24 hours. Dressing: Change the band aid as needed. It may be removed 24 hours after your procedure. Pain Control: The puncture site may be sore for 1 to 2 days following the procedure. About 1 in 5 patients develop a headache. If this occurs; follow the directions below: Mdgf-fhe-iigwxex pain medication should be used for pain or discomfort. Please check with the physician who ordered this procedure for you for their specific recommendations. Lay flat on your back and only get up to use the restroom for the remainder of the day. ? Drink extra fluids, including caffeinated beverages, unless otherwise directed by your ordering physician. If you were sedated for this procedure: Avoid alcoholic beverages for 24 hours after your procedure. Do not drive or operate heavy machinery for 24 hours after your procedure. Do not make any legal decisions for 24 hours after your procedure. Medication: Please resume all medications today per home schedule. When to seek medial care: Foul odor, pus drainage, redness, or swelling at puncture site. Excessive bleeding from puncture site. Fever greater than 101 degrees and chills. Severe postural headache: A headache that gets worse when standing and is relieved or improves when laying down, persists regardless of bed rest and increased fluids, and last more than 24 hours following the procedure. If you experience any of these issues during the first 24 hours, please follow the instruction below: 8:00 am- 5:00 pm call [phone] After 5:00 pm call [phone] After 24 hours, contact the physician who ordered this procedure for you. Obtaining test results: Please make an appointment with your doctor to obtain your test results. They are usually availablewithin 4 to 7 business days. Do not assume everything is normal if you have not heard from your doctor or medical facility. It is important for you to follow up on all of your test results. Special Instructions: Additional Information VACCINATE! IT SAVES LIVES! Members of the community who have not yet received the COVID-19 vaccine and would like to receive it can visit one of [facility] vaccine clinics. There are many vaccine clinic locations within the [facility]. For locations and available times, please visit [email or web address] It is important to note that some COVID mobile vaccine clinics are held outdoors and may be canceled in rainy or stormy conditions. To learn more about pediatric vaccinations (ages 5-11), we invite you to visit the [facility] webpage. [email or web address]/[email or web address]-Elyur-Zpmqnjgnsdh-Orqqpwxjwj-Apizk-[email or web address] stions.htmlTo learn more about the COVID-19 vaccine, we invite you to visit the [facility] website for a list of frequently asked questions. [email or web address]-[email or web address]/dffmg-Nkqarlu-Luszyxwfsn _[email or web address]-Questions.pdf [facility] Patient Portal Access Instructions: Stay connected with your healthcare team and access your personal medical information anytime with the [facility] Patient Portal.If you would like a full copy of your medical records, please contact the [facility] Medical Records Department, Monday through Monday between 8a.m. and 4:30p.m. Please follow the directions below to access the portal: 1.Access the email account you provided [facility].2.Look for an invitation email from [facility].3.Open the email and access the invitation link: Accept Invitation to [facility]4.Fill in the required cervantes to create your account. Sign into [email or web address] with your username and password that you created in the above steps to stay up to date. You can then view a summary of results, a summary of your visits, and the ability to download your summaries to your computer or send the information securely to a physician. Remember that your healthcare information is confidential, so carefully consider who you will allow to register on the [facility] Patient Portal for access to your information. You can also access the [facility] Patient Portal on the [employer] odalys. Simply click on Health Records under [employer] and then click on the [employer] logo. HOW TO SAFELY DISPOSE OF PRESCRIPTION MEDICATIONS Please use one of the following methods to safely dispose of your unused medications. 1.Use a drug disposal kit: the drug disposal pouch allows you to safely discard your old and unuseddrugs. Ask your nurse to give you one when you are discharged.2.Visit a local take-back location: Many local pharmacies and police departments have programs that collect old and unwanted prescriptiondrugs. Call your local pharmacy or go to http://Z2.xoompark/1K3Hq3i to find one close to you.3.Make use of household items: Use cat litter or old coffee grounds to dispose medications if other options arenot available. Mix your drugs with these household products, seal them in an airtight container andthrow it into the garbage. Call [facility]: [phone] to be sure your drugs can be disposed of in this way. Some medicines may require a different approach.4.Never flush your medications down the toilet. IF YOU HAVE BEEN PRESCRIBED AN OPIOID FOR PAIN If you have been prescribed an opioid (such as hydrocodone, oxycodone or morphine), it is critical to understand the possible side effects and risks of opioid pain medications. Even when taken as directed, opioids can have several side effects including: Tolerance, meaning you might need to take more of a medication for the same pain relief. Nausea, vomiting and/or constipation. Sleepiness, dizziness, dry mouth, confusion, depression or itching. Physical dependence, meaning you have withdrawal symptoms when a medication is stopped, can develop within a few days. KNOW YOUR RESPONSIBILITIES It is important to know exactly how much and how often to take the opioid pain medications you are prescribed. Never take opioids in higher amounts or more often than prescribed. Do not combine opioids with alcohol or other drugs that cause drowsiness, such as benzodiazepines, also known as benzos, including diazepam and alprazolam, muscle relaxants or sleep aids. Never sell or share prescription opioids. This is illegal. Store opioids in a secure place and out of reach of others (including children, family, friends and visitors). The last page of this document has been signed and retained as a CHART COPY. Signatures Patient Education Materials Radiology- Lumbar Puncture 10/02/2019 (CUSTOM) Medication Leaflets My discharge plan and instructions have been reviewed and explained to me and ITAO KRISTINE Munderstand my current condition and have read and understand these discharge instructions. I have received a written copy of the plan/instructions. If I have questions, I am aware that I should contact my doctor. Patient/Supervisor Pairing And Inspecting Signature: Date/Time: Relationship to Patient: Witness Name/Signature: Date[facility]Time: [id number] Note ORIGINAL PROCEDURE: Lumbar puncture with fluoroscopic guidance CLINICAL STATEMENT: Lower extremity tingling, rule out MS MATERIALS RECYCLER: Claudia Zaldivar PA-C FLUOROSCOPY: 0.2 Minutes AIR KERMA DOSE: 1 mGy NEEDLE: 20 G spinal needle CSF VOLUME REMOVED: 10 mL CSF APPEARANCE: Clear PUNCTURE LEVEL: L3-4 OPENING PRESSURE: 19 cm H2O The procedure, risks, and alternatives, were discussed and all questions were answered. Written informed consent obtained. Accompanying paperwork was verified for accuracy. Directed history and physical exam performed prior to the procedure. Medication reconciliation performed by nursing personnel. Procedure was performed using a cap, sterile gown, sterile gloves, a large sterile sheet, hand hygiene and Betadine for cutaneous antisepsis. The patient was positioned prone on the table and prepped and draped in usual sterile fashion. A critical pause was performed with assisting personnel just prior to the procedure with the patient's identity confirmed using 2 identifiers, confirming site and side. Prior to sterile prep, a puncture site was selected and marked under fluoroscopy. 2% lidocaine was administered at the puncture site for local anesthesia. A needle was advanced into the thecal sac under fluoroscopic guidance. A documentation image was stored. Position was confirmed with flow of CSF from the needle. After the adequate volume was removed, the needle was removed. A Band-Aid was placed at the puncture site. The sample was submitted to the laboratory. The patient tolerated the procedure well without immediate complication. Patient condition was stable. Patient placed in supine and flat position for 1 hour post procedure. IMPRESSION: Successful fluoroscopic guided lumbar puncture. Procedure was performed by Claudia Zaldivar PA-C. I concur with the contents of this report. Interpreted by: Ravindra Simental Preliminary Report By: Claudia Zaldivar PA-C Electronically signed By Ravindra Simental Dictated Date: 04/25/2022 3:35:57 PM Prelim Date: 04/25/2022 3:40:24 PM Sign Date: 04/25/2022 11:14:39 PM Ordering Provider: [facility]11-07-2022 Note IR Procedure Record Summary Primary Physician: CLAUDIA ZALDIVAR PA-C Finalized Date/Time: 04/25/22 13:34:07 Pt. Name: RALPH BURGER Favian Mckay/Sex: 1970 Female Med Rec #: [id number] Physician: Financial #: [id number] Pt. Type: O Room/Bed: / Admit/Disch: 04/25/22 11:25:00 - Institution: Allergies identified in patient's electronic medical record at time of printing on 04/25/22 Entry 1 Entry 2 Substance Bactrim amoxicillin Reaction Type Allergy Allergy Last Modified By: Meenu Kahn RN, Claudia J RN 06/21/12 11:29:16 06/21/12 11:28:59 Case Attendance- IR Entry 1 Entry 2 Entry 3 Case Attendee CLAUDIA ZALDIVAR PA-C, Jacque M. Herrick, Gathering Machine Feeder Milagros Damon Role Performed Primary Surgeon Scrub Technologist Circulating Technologist Details Time In 04/25/22 13:20:00 04/25/22 13:05:00 04/25/22 13:05:00 Time Out 04/25/22 13:40:00 04/25/22 13:40:00 04/25/22 13:40:00 Procedure/Preference IR Lumbar Puncture SN IR Lumbar Puncture SN IR Lumbar Puncture SN Card Last Modified By: LINDA Tapia RN Corey Snider, RN Corey 04/25/22 13:29:59 04/25/22 13:29:59 04/25/22 13:29:59 Entry 4 Case Attendee LINDA Tapia Role Performed Brand Development Manager 1 Details Time In 04/25/22 13:05:00 Time Out 04/25/22 13:40:00 Procedure/Preference IR Lumbar Puncture SN Card Last Modified By: LINDA Tapia 04/25/22 13:29:59 Radiology Procedures- IR Entry 1 Procedure/Preference IR Lumbar Puncture SN Actual Procedure lumbar puncture Card Primary Procedure Yes Primary Surgeon CLAUDIA ZALDIVAR PA-C Anesthesia/Sedation Local Type Additional Procedure Times Start 04/25/22 13:20:00 Stop 04/25/22 13:29:00 Specialty Service SN Radiology Procedure EBL 1 mL Last Modified By: LINDA Tapia 04/25/22 13:31:33 Radiology Procedure Details - IR Entry 1 Radiology Sedation Case Times Sedation Total Time 0min Radiology - Fluid/Drainage Radiology Contrast Contrast Used? No Radiology Flouroscopy Fluoroscopy Used? Yes Fluoro Dose (mGy) 1 Fluoro Time 0.2min Radiology Local Local Used? Yes Local Type: lidocaine Local Dose 5ml Radiology Procedure Site Site/Location L 3-4 Site Condition No complications Dressing Type Bandaids Technologist Notes L 3-4, opening pressure [id number]. 20g spinal needle. 1324 10cc of CSF collected Last Modified By: LINDA Tapia 04/25/22 13:32:26 General Case Data - IR Entry 1 Case Information Room AH IR 16 Case Level IR Level 1 Wound Class None Specialty SN Radiology Procedure ASA Class None Diagnosis Preop Diagnosis MRI of head abnormal Postop Same As Preop Yes Postop Diagnosis MRI of head abnormal Last Modified By: LINDA Tapia 04/25/22 13:12:38 Procedure Case Times- IR Entry 1 Patient In Procedure Patient In OR 04/25/22 13:05:00 Patient Out of OR 04/25/22 13:40:00 Procedure Start/Stop Procedure Start Time 04/25/22 13:20:00 Procedure Stop Time 04/25/22 13:29:00 Last Modified By: LINDA Tapia 04/25/22 13:29:58 Immediate Post Procedure Note - IR Entry 1 Immediate Post Yes Procedure Note displayed for Physician to review Closure Technique Closure Technique Other than Primary Last Modified By: LINDA Tapia 04/25/22 13:12:06 Immediate Post Procedure Note - IR Signed By: CLAUDIA ZALDIVAR PA-C 04/25/22 13:31 Allergy Information- IR Entry 1 Allergies Reviewed? Yes Allergies Reviewed Medical Record With Last Modified By: LINDA Tapia 04/25/22 13:09:08 Radiology Protocols/Time Out- IR Entry 1 Preprocedure Clinician Verifies Correct patient ID When Clinically Confirmation of correct using name & date Indicated side(s) and site(s), or MRN, Accurate Correct diagnostic and procedure, complete radiology tests Informed Consent, H & P available, Required update immediately blood products, prior to procedure, if implants, devices applicable and/or special equipment available OR/Procedure Room/Bedside Time 04/25/22 13:20:00 Clinician Verifies Correct patient identity including EMR & records using name and date or medical record number, Accurate procedure consent form, Correct patient position, Necessary equipment is available, Anticipated non-routine events with surgical team (case duration, estimated blood loss, patient specific concerns)., K[place]hler patient factors for recovery and management identified with surgical team. When Applicable Confirmation correct Team Members CLAUDIA ZALDIVAR PA-C, side and site marked, Present for Time Out Domitila [place], Relevant images and Bandar Dewey results are properly L, LINDA Tapia labeled and appropriately displayed, Alcohol based prep dry, Double verification of sterility indicators complete Instrument Sterility Team Members CLAUDIA ZALDIVAR PA-C, Verifying Sterility Domitila Washington Procedure IR Lumbar Puncture SN Last Modified By: LINDA Tapia 04/25/22 13:21:47 Skin Prep- IR Entry 1 Procedure IR Lumbar Puncture SN Skin Prep Prep Area Back Side Lower By Domitila Washington Prep Agents Betadine Scrub Hair Removal Method N/A Last Modified By: LINDA Tapia 04/25/22 13:11:35 Patient Positioning- IR Entry 1 Procedure IR Lumbar Puncture SN Body Position OP Prone Feet Uncrossed? Yes Pressure Points Yes Checked Last Modified By: LINDA Tapia 04/25/22 13:11:49 Radiology Procedure Plan - IR Entry 1 Radiology - Nursing Care Plan Outcome Statement The patient Outcome Statement The patient receives demonstrates knowledge Cont. appropriate of the expected medication(s), safely responses to the administered during the operative/invasive perioperative/invasive procedure., The period., The patient is patient's value system, free from signs and lifestyle, ethnicity, symptoms of injury and culture are caused by extraneous considered, respected, objects (equipment, and incorporated in the instrumentation, perioperative plan of sponges, or sharps). care., The patient is free from signs and symptoms of infection., The patient is free from signs and symptoms of injury related to positioning. Radiology - Action Plan Outcomes Met? Yes Machine Welt Butter LINDA Tapia Completing Procedure Plan Last Modified By: LINDA Tapia 04/25/22 13:12:21 Case Comments Finalized By: LINDA Tapia Document Signatures Signed By: LINDA Tapia 04/25/22 13:33 LINDA Tapia 04/25/22 13:34 [id number] Interventional Radiology Focused Preprocedure History/Physical Reason for Visit MRI of head abnormal History of Presenting Illness/Planned IR Procedure Concern for demyelinating process based on recent MRI brain results. Presents for LP Allergies (2) ActiveReaction amoxicillinRASH BactrimRASH Home Medications (3) Active estradiol 1 mg oral tablet See Instructions famotidine 20 mg oral tablet Vitamin D3 25 mcg (1000 intl units) oral tablet 25 mcg = 1 tab(s), Oral, qDay Problem List/Past Medical History Back pain Surgical History Hysterectomy: 06/28/12 Family History Mother: Cancer Father: Cancer Social History Alcohol Details: Use: Never. Exercise Details: Exercise type: Jogging/Running. Days per week: 5-6 times/week. Substance Abuse Details: Use: Never. Tobacco Details: Nicotine Use: Never (less than 100 in lifetime). Physical Exam Vitals: Ocuzxkmehjk59 (11:41) Systolic Blood PressureNo result Diastolic Blood PressureNo result Pulse77 (11:41) [id number] (11:41) Respiratory Rate16 (11:41) General: Alert, cooperative. _ The remainder of the physical exam is noncontributory. Labs Anticoagulation Labs Protime: 11.7 seconds (04/25/22 11:40:00) PT International Ratio: 1 ratio (04/25/22 11:40:00) Last Month Basic Metabolic Panel: Hematology: Sodium Level: 140 (04/02/22) Hgb: ------ Potassium Level: 4.2 (04/02/22) : () Phosphorus: ------ WBC: ------ Magnesium Lvl: ------ Platelet: 363 (04/25/22) BUN: 11.0 (04/02/22) PT International Ratio: 1.0 (04/25/22) Creatinine Lvl (s): 0.90 (04/02/22) : () Additional - Last Month A/G Ratio: 1.3 (04/02/22) Albumin Level: 4.1 (04/02/22) Alk Phos: 75 (04/02/22) ALT/SGPT: 35 (04/02/22) AST/SGOT: 35 (04/02/22) Bili Total: 0.80 (04/02/22) BUN/Creatinine Ratio: 12.2 (04/02/22) Calcium Lvl: 10.0 (04/02/22) Chloride: 103 (04/02/22) CO2: 32 (04/02/22) Electrolyte Balance: 5.0 (04/02/22) GFR : >60 (04/02/22) GFR Non-: >60 (04/02/22) Globulin: 3.1 (04/02/22) Glucose Level: 82 (04/02/22) Misc. Send Out: See Comments (04/20/22) Protime: 11.7 (04/25/22) PTH, Intact: 54.6 (04/02/22) Total Protein: 7.2 (04/02/22) Vit. D 25-Hydroxy: 33.8 (04/02/22) Assessment/Treatment Plan Lumbar puncture Post Procedure Discharge Plan Patient to be discharged home. Claudia Zaldivar PA-C Interventional Radiology Pager: [phone] dept: [phone] Available on [employer] Digitally Signed by CLAUDIA ZALDIVAR PA-C on 04/25/2022 12:22 PM Digitally Signed by RAVINDRA SIMENTAL MD on 04/25/2022 03:15 PM [id number] Discharge instructions Patient Education 04/19/2022 08:13:02 PM Discharge Instructions no lines- post-procedure ([id number]) [facility] Discharge Instructions POST PROCEDURE INSTRUCTIONS - Please follow all of the below: There are no general limitations to your activities. May resume driving a car in ___6____ hours. Resume regular activity. Resume your regular diet. Keep bandaid dry and remove in 24 hours. Call in 2 weeks to report progress on today's injection Continue ice 20 minutes on 20 minutes off for 2 hours to reduce any bruising sensation Remain active. Avoid bedrest. [facility] 11-01-2022 Summary of episode note Discharge Instructions Thank you for allowing [facility] to assist you with your healthcare needs. The following is importantdischarge information regarding your hospital visit. Your Care Team MD VITO LINN MD Your Diagnosis Lumbar radiculopathy Lumbar disc disease with radiculopathy What to do next Scheduled Follow-Up Appointments Appointment Type When Where Contact InformationIR Lumbar Puncture 04/25/2022 01:00 PM EST IR PM EMG/NCV 1 Extremity 05/06/2022 03:00 PM EST [facility] [address] [place] [address]- Allergies Bactrim (RASH) amoxicillin (RASH) Medications Please ask your primary doctor or pharmacist before taking any other medication not listed, including over the counter drugs, herbal medications, vitamins and or supplements as they may interact withyour home medications. What How Much When Instructions Last Dose Unchanged cholecalciferol (Vitamin D3 25 mcg (1000 intl units) oral tablet) 1 tab(s) by mouth Once a day Unchanged estradiol (estradiol 1 mg oral tablet) See instructions 1/ 2 tab(s) mg Oral every other Day Unchanged famotidine (famotidine 20 mg oral tablet) Please take this list to your next doctor s visit. Bring all medications you take, including over the counter medications, herbals and other supplements with you to your doctor s visit. Patients and families are reminded to discard old lists and to update any records with all medication providers or retail pharmacies. Education Materials [facility] Discharge Instructions POST PROCEDURE INSTRUCTIONS - Please follow all of the below: There are no general limitations to your activities. May resume driving a car in ___6____ hours. Resume regular activity. Resume your regular diet. Keep bandaid dry and remove in 24 hours. Call in 2 weeks to report progress on today's injection Continue ice 20 minutes on 20 minutes off for 2 hours to reduce any bruising sensation Remain active. Avoid bedrest. Additional Information VACCINATE! IT SAVES LIVES! Members of the community who have not yet received the COVID-19 vaccine and would like to receive it can visit one of [facility] vaccine clinics. There are many vaccine clinic locations within the [facility]. For locations and available times, please visit [email or web address] It is important to note that some COVID mobile vaccine clinics are held outdoors and may be canceled in rainy or stormy conditions. To learn more about pediatric vaccinations (ages 5-11), we invite you to visit the [facility] webpage. [email or web address]/[email or web address]-Qehlfyhvnl-[email or web address] [email or web address].htmlTo learn more about the COVID-19 vaccine, we invite you to visit the [facility] website for a list of frequently asked questions. [email or web address] [employer] Patient Portal Access Instructions: Stay connected with your healthcare team and access your personal medical information anytime with the [employer] Patient Portal.If you would like a full copy of your medical records, please contact the [facility] Medical Records Department, Monday through Monday between 8a.m. and 4:30p.m. Please follow the directions below to access the portal: 1.Access the email account you provided upon registration to the hospital.2.Look for an invitation email from [facility].3.Open the email and access the invitation link: Accept Invitation to [employer]4.Fill in the required cervantes to create your account. Sign into [email or web address] with your username and password that you created in the above steps to stay up to date. You can then view a summary of results, a summary of your visits, and the ability to download your summaries to your computer or send the information securely to a physician. Remember that your healthcare information is confidential, so carefully consider who you will allow to register on the [employer] Patient Portal for access to your information. You can also access the [employer] Patient Portal on the Spreadshirt. Simply click on Health Records under [employer] and then click on the [employer] logo. HOW TO SAFELY DISPOSE OF PRESCRIPTION MEDICATIONS Please use one of the following methods to safely dispose of your unused medications. 1.Use a drug disposal kit: the drug disposal pouch allows you to safely discard your old and unuseddrugs. Ask your nurse to give you one when you are discharged.2.Visit a local take-back location: Many local pharmacies and police departments have programs that collect old and unwanted prescriptiondrugs. Call your local pharmacy or go to http://Z2.xoompark/4Y2Er7s to find one close to you.3.Make use of household items: Use cat litter or old coffee grounds to dispose medications if other options arenot available. Mix your drugs with these household products, seal them in an airtight container andthrow it into the garbage. Call [facility]: [phone] to be sure your drugs can be disposed of in this way. Some medicines may require a different approach.4.Never flush your medications down the toilet. IF YOU HAVE BEEN PRESCRIBED AN OPIOID FOR PAIN If you have been prescribed an opioid (such as hydrocodone, oxycodone or morphine), it is critical to understand the possible side effects and risks of opioid pain medications. Even when taken as directed, opioids can have several side effects including: Tolerance, meaning you might need to take more of a medication for the same pain relief. Nausea, vomiting and/or constipation. Sleepiness, dizziness, dry mouth, confusion, depression or itching. Physical dependence, meaning you have withdrawal symptoms when a medication is stopped, can develop within a few days. KNOW YOUR RESPONSIBILITIES It is important to know exactly how much and how often to take the opioid pain medications you are prescribed. Never take opioids in higher amounts or more often than prescribed. Do not combine opioids with alcohol or other drugs that cause drowsiness, such as benzodiazepines, also known as benzos, including diazepam and alprazolam, muscle relaxants or sleep aids. Never sell or share prescription opioids. This is illegal. Store opioids in a secure place and out of reach of others (including children, family, friends and visitors). The last page of this document has been signed and retained as a CHART COPY. Signatures Patient Education Materials PM Discharge Instructions no lines- post-procedure (11621) Medication Leaflets My discharge plan and instructions have been reviewed and explained to me and ITAO KRISTINE Munderstand my current condition and have read and understand these discharge instructions. I have received a written copy of the plan/instructions. If I have questions, I am aware that I should contact my doctor. Patient/Supervisor Pairing And Inspecting Signature: Date/Time: Relationship to Patient: Witness Name/Signature: Date/Time: [facility] [id number] History and physical note Date of Service April 19, 2022 8:30 AM History and Physical Update I have examined the patient; reviewed the History and Physical and there are no changes to the History and Physical unless noted below. Deep tendon reflex and lower extremities are graded 2/4. Straight leg raise equivocally negative at 90 degrees. There is some paraspinous muscle tightness in the lumbar region. Patient rates her pain 3 out of 10 numbness and dull in nature with a diagram showing pain through the lumbosacral region is more to the right than the left lower extremity. History and Physical Chief Complaint c/o primary pain Low back radiating down RLE - below knee to foot History of Present Illness This 52-year-old white female patient was seen today at [facility] request of Dr. Oliveira. Patient is also seen by primary care Dr. Linn who will receive a copy of this dictation. Patient is complaining of intermittent low back pain with right lower extremity radiculopathy and foot numbness. She stated that all the pain started after a lift in the end of December when she was working out. She noted pain in her right buttock and right leg and had difficulty sleeping. The pain has regressed and now just from the calf down into the foot and forefoot numbness. Patient has continued to do stretching and home exercise program to reduce the pain. She rates her pain 3 out of 10 aching and numbness in nature with a diagram as described above. Patient denies any trauma to the low back denies any change in bowel or bladder habits. She is currently undergoing a work-up to rule in or rule out MS because a lesion was found on the conus of the spinal cord on the MRI scan. Review of Systems ROS AMB Chief Complaint : primary pain Low back radiating down RLE - below knee to foot Susy Melendez RN - 04/13/2022 9:33 EDT Treatment Response : avid runner - unable to run x 3 months d/t pain spinal puncture 04/25/2022 to rule-out MS Susy Melendez RN - 04/13/2022 9:47 EDT Susy Melendez RN - 04/13/2022 9:47 EDT General Review of Systems Grid Fever : No Weight Gain : No Weight Loss : No Susy Melendez RN - 04/13/2022 9:33 EDT Head and Neck Review of Systems Grid Blurred Vision : No Difficulty swallowing : No Hearing Loss : No Hoarseness : No Loss of Vision : No Sore Throat : No Susy Melendez RN 04/13/2022 9:33 EDT Respiratory/Lungs Review of Systems Grid Coughing : No Shortness of Breath : No Susy Melendez RN 04/13/2022 9:33 EDT Skeletal Review of Systems Grid Joints Swelling/Stiffness : No Pain in Joint(s) : No Susy Melendez RN 04/13/2022 9:33 EDT Heart/Vascular Review of Systems Grid Chest pain/tightness : No Irregular Heartbeat : No Rapid Heart Beat : No Susy Melendez RN 04/13/2022 9:33 EDT Neuro Review of Systems Grid Difficulty w/Balance : No Difficulty Walking : No Weakness Lower Extremity (L) : No Weakness Lower Extremity (R) : No Weakness Upper Extremity (L) : No Weakness Upper Extremity (R) : No Susy Melendez RN 04/13/2022 9:33 EDT Stomach/Bowel Review of Systems Grid Constipation : No Diarrhea : No Nausea : No Vomiting : No Susy Melendez RN - 04/13/2022 9:33 EDT Urinary Review of Systems Grid Nocturia : No Urinary Incontinence : No Urinary Urgency : No Susy Melendez RN 04/13/2022 9:33 EDT Skin Review of Systems Grid Itching : No Rash : No Sores : No Susy Melendez - 04/13/2022 9:33 EDT Hematology Review of Systems Grid Bleeds Easily : No Blood Clots : No Low Blood Count : No Susy Melendez LINDA 04/13/2022 9:33 EDT Sleep Review of Systems Grid Daytime Sleepiness : No Fatigue : No Insomnia : No Snoring : No Susy Melendez RN 04/13/2022 9:33 EDT Endocrine Review of Systems Grid High Blood Sugar : No Low Blood Sugar : No Susy Melendez RN - 04/13/2022 9:33 EDT Psychiatric Review of Systems Grid Anxious : No Susy Melendez RN 04/13/2022 9:33 EDT Psychiatric ROS Comments : Feels safe in home - no suicidal thoghts Susy Melendez - 04/13/2022 9:33 EDT Primary Pain Pain Symptoms : Yes Pain Scale Type Adult : 0-10 Pain scale Primary Pain Intensity : 3 Primary Pain Laterality : Right Primary Pain Quality : Aching Primary Pain Location : Low back Susy Melendez [facility] 04/13/2022 9:33 ED [1] Physical Exam Vitals and Measurements HR: 70 RR: 12 BP: 118/86(Right Arm) SpO2: 100% HT: 160.0 cm WT: 124.7 kg BMI: 48.71 No qualifying data available. Primary Pain Intensity: 3 (04/13/22 09:33:00) Physical examination of alert oriented 52-year-old white female in mild discomfort admitting pain level 3 out of 10 as noted above. HEENT: HEENT exam revealed contact lenses in place. Pupils are equal round react light accommodation. Extraocular muscle Intact. Cranial nerves II through XII are grossly intact. Thyroid trachea and great vessels of the neck are without significant abnormality. Dentition in good repair Heart: Heart is of regular rate and rhythm without murmur. Lungs: Lungs were clear to auscultation. Neurologic: Neurologic exam revealed 1-2 over 4 deep tendon reflexes upper and lower extremities bilaterally. Straight leg raising was negative to 90 degrees. Figure 4 test was negative. Dorsalis pedis pulses are palpable bilaterally. No pretibial edema is noted Exam is lumbar spine revealed paraspinous muscle tenderness and spasm in the lower lumbar region but no distinct palpable trigger points appreciated Imaging Results and Diagnostics MRI of the lumbar spine performed 02/26/[address] Moisés Glaser Department of radiology [facility] showed: L3-4: There is mild posterior disc bulge. There is a superimposed mild left neural foraminal extrusion. There is mild facet and ligamentum flavum hypertrophy. There is mild left neural foraminal narrowing L4-5: There is mild posterior disc bulge with annular tear. There is mild facet hypertrophy L5-S1: There is mild posterior disc bulge with mild to moderate superimposed extrusion spanning theright parasagittal and subarticular components. This abuts but does not significantly displace the descending right S1 nerve root (01/19/2022 14:47 EDT XR Spine Lumbar W/Obliques 4 Views) ORIGINAL EXAMINATION: 4 XRAY VIEWS OF THE LUMBAR SPINE01/19/2022 2:47 pm LUMBAR SPINE W/ OBLIQUES COMPARISON: None HISTORY: ORDERING SYSTEM PROVIDED HISTORY: Reason for Exam: CHRONIC LOW BACK PAIN FINDINGS: The alignment appears normal. Multilevel facet arthropathy noted. Mild loss of disc height seen at L3-4 and L4-5. IMPRESSION: No compression deformity or significant listhesis. Mild degenerative changes Interpreted by: Jemal Ge MD Preliminary Report By: Jemal Ge MD Electronically signed By Jemal Ge MD Dictated Date: 01/21/2022 9:41:19 AM Prelim Date: 01/21/2022 9:42:37 AM Sign Date: 01/21/2022 9:42:37 AM Ordering Provider: HANNA OLIVEIRA [2] Social History Smoking Status - 06/21/2012 Never smoker Alcohol Use: Never., 04/13/2022 Exercise Exercise type: Jogging/Running. Days per week: 5-6 times/week., 04/13/2022 Substance Abuse Use: Never., 04/13/2022 Tobacco Nicotine Use: Never (less than 100 in lifetime)., 04/13/2022 Family History Cancer: Mother and Father. Assessment/Plan 1. Lumbar radiculopathy 2. Lumbar disc disease with radiculopathy Orders: PM Inj Spine L/S With Imaging 92974 3.PLAN: Discussion was undertaken with the patient after reviewing her MRI scan level by level. We explained the procedure potential complication risk benefits alternatives lumbar epidural steroid injection consisting of local anesthetic and long-acting steroid. She understands my goal is a 50% reduction in pain to be considered a success of therapy and agrees to proceed. Patient will be scheduled for a lumbar puncture on April 25 and we would like to perform the procedure prior to that to make sure there is not a remaining rent in the dura that would allow for translation of the medicationfrom the epidural space to the intrathecal space. Patient is going to continue work-up for her MS. Problem List/Past Medical History Ongoing No qualifying data Historical No qualifying data Procedure/Surgical History Hysterectomy: 06/28/12 Allergies Bactrim (RASH) amoxicillin (RASH) I have reviewed the [place] automated Rx reporting system (OARRS) report for this patient for refill pattern and other prescriber involvement as part of the appropriate surveillance for the provision ofacute and chronic controlled medication. The report was requested, reviewed, and was considered appropriate in the prescribing process. Total time: 42 minutes. This included [id number] time, physical examination, attestation and review of OARRS report. Opioid risk tool was completed became part of the medical record. Treatment agreement was executed became part of the medical record. Medications were reviewed none were written. Instructions were given to the patient regarding the procedure potential complication risk benefits alternatives of a lumbar epidural steroid injection with fluoroscopic guidance and the patient agreed to proceed. She will continue with the work-up for MS. We did review briefly the brain MRI cervical MRI and thoracic MRI which seems to indicate a demyelinating disease as well./ This document was created using voice recognition software. Spelling grammar and syntax errors are possible. Medications What How Much When Instructions Last Dose Unchanged acetaminophen-hydrocodone (Vicodin 500-5 mg oral tablet) 1 tab(s) by mouth Every 4 hours as needed for Pain Unchanged docusate (Colace 100 mg oral capsule) 1 cap by mouth Two (2) times a day as needed for Constipation Unchanged ibuprofen (Motrin 600 mg oral tablet) 1 tab(s) by mouth Every 6 hours as needed for Pain, scale 1-4 ( Mild ) [1] Ambulatory Comprehensive Intake - Pain Management; Susy Melendez RN 04/13/2022 09:33 EDT [2] XR Spine Lumbar W/Obliques 4 Views; JEMAL GE MD 01/19/2022 14:47 EDT Signature Line Digitally Signed by JUAN CERVANTES DO on 04/13/2022 10:01 AM [1] [1] Specialty Office Visit Note; JUAN CERVANTES DO 04/13/2022 09:09 EDT Digitally Signed by JUAN CERVANTES DO on 04/19/2022 08:27 AM [facility]02-14-2022 Evaluation + Plan note Diagnostic Tests Pending * Aldosterone 08/02/21 * Renin, Plasma 08/02/21 * ADELA (serum) 08/02/21 * ADELA (urine) 08/02/21 [facility] Evaluation + Plan note Future Appointments Appointment Date:04/19/2022 08:00:00 AM Scheduled Provider: Location:Pain Management- [place] Appointment Type:PM Inj Spine L/S With Imaging Appointment Date:04/25/2022 01:00:00 PM Scheduled Provider: Location:IR Appointment Type:IR Lumbar Puncture Appointment Date:05/06/2022 03:00:00 PM Scheduled Provider: Location:PAIN Appointment Type:PM EMG/NCV 1 Extremity Future Scheduled Tests Radiology* IR Lumbar Puncture 04/25/22 [facility] Evaluation + Plan note Future Appointments Appointment Date:04/25/2022 01:00:00 PM Scheduled Provider: Location:IR Appointment Type:IR Lumbar Puncture Appointment Date:05/06/2022 03:00:00 PM Scheduled Provider: Location:PAIN Appointment Type:PM EMG/NCV 1 Extremity Future Scheduled Tests Radiology* IR Lumbar Puncture 04/25/22 [facility] Evaluation + Plan note Future Appointments Appointment Date:04/25/2022 01:00:00 PM Scheduled Provider: Location:IR Appointment Type:IR Lumbar Puncture Appointment Date:05/06/2022 03:00:00 PM Scheduled Provider: Location:PAIN Appointment Type:PM EMG/NCV 1 Extremity Diagnostic Tests Pending * [facility] Send out (Blood Specimens) 04/20/22 * [facility] Send out (Blood Specimens) 04/20/22 Future Scheduled Tests Radiology* IR Lumbar Puncture 04/25/22 [facility] Evaluation + Plan note Future Appointments Appointment Date:06/24/2022 04:15:00 PM Scheduled Provider: Location:[facility] Appointment Type:MRI Spine Thoracic w/ + w/o Contrast Diagnostic Tests Pending * Hepatitis B Core Antibody Total 06/10/22 Future Scheduled Tests Radiology* MRI Spine Thoracic w/ + w/o Contrast 06/24/22 [facility] Evaluation + Plan note Future Appointments Appointment Date:03/21/2024 07:00:00 AM Scheduled Provider: Location:[facility] Appointment Type:CV Procedure - Echo (Adult) Appointment Date:03/21/2024 08:00:00 AM Scheduled Provider: Location:[facility] Appointment Type:BD Bone Density DEXA Axial Skeleton Future Scheduled Tests Radiology* BD Bone Density DEXA Axial Skeleton Adult (21 yrs or older) 03/21/24 [facility] Hospital course Narrative No data available for this section [facility] Hospital Discharge instructions No data available for this section [facility] Progress note No data available for this section [facility] Summary Purpose Family History No Family History Records Found No data available for this section No Family History Records Found No data available for this section No Family History Records FoundNo Family History Records FoundNo Family History Records Found Advance Directives No Advanced Directives Records FoundNo Advanced Directives Records FoundNo Advanced Directives Records FoundNo Advanced Directives Records FoundNo Advanced Directives Records Found Additional Source Comments INFORMATION SOURCE (unrecogn ized section and content) DATE CREATED AUTHOR 03/28/2022 [facility] DATE CREATED AUTHOR AUTHOR'S ORGANIZ ATION 02/16/2024 [facility] ([place] DATE CREATED AUTHOR AUTHOR'S ORGANIZ ATION 11/27/2024 [facility] DATE CREATED AUTHOR AUTHOR'S ORGANIZ ATION 12/27/2024 [facility] DATE CREATED AUTHOR AUTHOR'S ORGANIZ ATION 03/06/2025 [facility] Care Team (unrecognized sect ion and content) Care Team Personnel Name: MD VITO LINN MD Position: Physician Member Role: Primary Care Physician Address: Address: [address] Name: IvanaJustin shukla Position: P3 Scheduling - Assembler Product Advanced Member Role: Other Name: StalinRae Bench Assembler Electrical Position: P3 Scheduling - Assembler Product Advanced Member Role: Other Name: Meghna Díaz Position: P3 Scheduling - Assembler Product Advanced Member Role: Other Care Team Related Persons Name: CORWIN BURGER Care Team Personnel Name: MD VITO LINN MD Position: Physician Member Role: Primary Care Physician Address: Address: [address] Name: IvanaJustino shuklaavnibrown Position: P3 Scheduling - Assembler Product Advanced Member Role: Other Name: Rae Gant Bench Assembler Electrical Position: P3 Scheduling - Assembler Product Advanced Member Role: Other Name: Meghna Díaz Position: P3 Scheduling - Assembler Product Advanced Member Role: Other Care Team Related Persons Name: CORWIN BURGER Care Team Personnel Name: MD VITO LINN MD Position: Physician Member Role: Primary Care Physician Address: Address: [address] Name: Ivana Justinoavnibrown Position: P3 Scheduling - Assembler Product Advanced Member Role: Other Name: Rae Gant Bench Assembler Electrical Position: P3 Scheduling - Assembler Product Advanced Member Role: Other Name: Meghna Díaz Position: P3 Scheduling - Assembler Product Advanced Member Role: Other Care Team Related Persons Name: CORWIN BURGER Care Team Personnel Name: MD VITO LINN MD Position: Physician Member Role: Primary Care Physician Address: Address: [address] Name: Ivana Justinolouis Position: P3 Scheduling - Assembler Product Advanced Member Role: Other Name: Rae Gant Bench Assembler Electrical Position: P3 Scheduling - Assembler Product Advanced Member Role: Other Name: Meghna Díaz Position: P3 Scheduling - Assembler Product Advanced Member Role: Other Care Team Related Persons Name: CORWIN BURGER Care Team Personnel Name: MD VITO LINN MD Position: Physician Member Role: Primary Care Physician Address: Address: [address] Name: Justin Heath Position: P3 Scheduling - Assembler Product Advanced Member Role: Other Name: Rae Gant Bench Assembler Electrical Position: P3 Scheduling - Assembler Product Advanced Member Role: Other Name: Meghna Díaz Position: P3 Scheduling - Assembler Product Advanced Member Role: Other Care Team Related Persons Name: CORWIN BURGER Patient Care team informatio n (unrecognized section and content) Care Team Personnel Name: MD VITO LINN MD Member Role: Primary Care Physician Address: Address: [address] Name: Justin Heath Position: P3 Scheduling - Assembler Product Advanced Member Role: Other Name: Rae Gant Bench Assembler Electrical Position: P3 Scheduling - Assembler Product Advanced Member Role: Other Name: Meghna Díaz Position: P3 Scheduling - Assembler Product Advanced Member Role: Other Care Team Related Persons Name: CORWIN BURGER Care Team Personnel Name: MD VITO LINN MD Position: No Access Member Role: Primary Care Physician Address: Address: [address] Name: Justino Heathavnibrown Position: P3 Scheduling - Assembler Product Advanced Member Role: Other Name: Rae Gant Bench Assembler Electrical Position: P3 Scheduling - Assembler Product Advanced Member Role: Other Name: Meghna Díaz Position: P3 Scheduling - Assembler Product Advanced Member Role: Other Care Team Related Persons Name: CORWIN BURGER Care Team Personnel Name: MD VITO LINN MD Position: No Access Member Role: Primary Care Physician Address: Address: [address] Name: Justin Heath Position: NA/UA Member Role: Other Name: Rae Gant Bench Assembler Electrical Position: P3 Scheduling - Assembler Product Advanced Member Role: Other Name: Meghna Díaz Position: P3 Scheduling - Assembler Product Advanced Member Role: Other Care Team Related Persons Name: CORWIN BURGER FOR RECORDS PERTAINING TO PATIENTS WHO ARE OR HAVE BEEN ENROLLED IN A CHEMICAL DEPENDENCY/SUBSTANCEABUSE PROGRAM, SOME INFORMATION MAY BE OMITTED. This clinical summary was aggregated from multiple sources. Caution should be exercised in using it in the provision of clinical care. This summary normalizes information from multiple sources, and as a consequence, information in this document may materially change the coding, format and clinical context of patient data. In addition, data may be omitted in some cases. CLINICAL DECISIONS SHOULD BE BASED ON THE PRIMARY CLINICAL RECORDS. [employer] [facility]. provides no warranty or guarantee of the accuracy or completeness of information in this document.
== END | disposition home or self-care (01) ==
PROVIDERS: PCP Family Medicine
DX: Z13.89 Encounter for screening for other disorder (principal)
CPT/HCPCS: 76499